=== PATIENT | female | born 1985 | race Caucasian/White ===

== ENCOUNTER → 2018-03-05 | Outpatient (CLI) | payer OTHER ==
[~2018-03-05] MED LIST: DOCU100C37 PO; IBUP-1780 PO; OXYC-465 PO; PREN-94 PO
== END ==
LOC: LABNPT 10:17
PROVIDERS: ATTEND Obstetrics & Gynecology
DX: O28.8 Other abnormal findings on antenatal screening of mother (principal)
CPT/HCPCS: 82570; 84156

== ENCOUNTER 2018-03-08 09:43 | Inpatient (IN) | payer OTHER ==
[2018-03-08] VITALS (9 sets, daily range): BP systolic 142–168; BP diastolic 74–87
[~2018-03-08] VITALS: Ht 165.1 cm; Wt 85.7 kg
[~2018-03-08 09:43] MED LIST changes: -Nifedipine PO; -OXYC1TAB12 PO
--- NOTE | 2018-03-08 12:05 | NUR ---
RACIEL NGUYEN presented to unit via AMBULATORY, accompanied by FAMILY, with c/o PREECLAMPSIA/ SENT FROM OFFICE FOR ADMISSION. RACIEL NGUYEN weighed, gowned, voided, and to bed. EFHM and TOCO applied, VS taken. RACIEL NGUYEN oriented to bed controls, call light, TV, heat, and A/C controls.
[2018-03-08] MEDS ORDERED: D5 LR IV SOLUTION 1,000 ML IV SCH (13:08)
--- NOTE | 2018-03-08 13:08 | History & Physical ---
History and Physical Date Seen by Provider: Mar 08, 2018 Time Seen by Provider: 13:03 This patient is a 32-year-old white female with an EDC of 2 2319 putting her at 36 and 57 weeks gestation. Her complicated by gestational diabetes type a 2 she has been on metformin with good blood sugar control. She also has pre-existing hypertension for which she has been on labetalol in spite of that her blood pressures have crept up and she was found today to have a urine protein creatinine ratio of 0.37. This was also complicated by polyhydramnios with an AIYANA of 272 noted on 2117. Patient is a high school history teacher physicians in [facility] and their plan for management which is ongoing now has been followed for this point She was admitted for management secondary to her preeclampsia. She denies rupture membranes or bleeding. Her GBS culture was done on this date in clinic. She has had 2 previous C-sections and plan is for repeat when delivery is warranted Allergies are to methyldopa which causes a rash Medications are labetalol 100 mg daily and vitamins and metformin 500 mg at bedtime 1 surgical histories are per the antepartum record HEENT exam is normal Neck is supple no lymphadenopathy no thyromegaly Abdomen is gravid soft nontender nondistended Extreme show no clubbing or cyanosis. There is no Homans sign. DTRs were 2+ to 3 over 4 globally Pelvic exam in my clinic on this date showed a cervix that is closed high and posterior Lab work is pending urine protein creatinine ratio obtained in my clinic was 0.37 today Assessment and plan 36-5/7 weeks' gestation in patient with gestational diabetes pre-existing hypertension with now superimposed preeclampsia and with 2 previous C-sections Plan at this point is for observation for continued blood pressure monitoring we will obtain baseline labs including a CBC CMP and an LDH. Patient will continue her diabetic diet and metformin as well as her blood pressures medication At this point patient appears to have mild preeclampsia. If that should progress to severe than we would effect delivery then otherwise delivery we'll be pursued at 37 weeks gestation which is 2 days hence Preeclampsia 36-5/7 weeks' gestation Allergies and Home Medications Allergies Coded Allergies: No Known Drug Allergies (Unverified , 06/24/15) Home Medications Docusate Sodium 100 Mg Capsule, 100 MG PO BID Prescribed by: EDINSON DO on 06/26/15 0740 Ibuprofen 800 Mg Tablet, 800 MG PO Q6H Prescribed by: EDINSON DO on 06/26/15 0740 Oxycodone HCl/Acetaminophen 1 Each Tablet, 1-2 TAB PO Q4H PRN for PAIN Prescribed by: EDINSON DO on 06/26/15 0740 Vits #90/Iron Fum/FA 1 Each Tablet, 1 EACH PO DAILY, (Reported) Patient Home Medication List Home Medication List Reviewed: Yes EDINSON VASQUEZ MD Mar 08, 2018 13:08
[2018-03-08] MEDS ORDERED: LABETALOL 200 MG (NORMODYNE) TAB PO NR (13:15)
[2018-03-08] MEDS ORDERED: LABETALOL 100 MG PO SCH (13:15)
[2018-03-08] MEDS ORDERED: PATIENT MAY USE OWN MEDS, ALL MC SCH (13:15)
[2018-03-08 14:31] LABS: HEMOGLOBIN 10.3 G/DL (11.5-16.0); MEAN PLATELET VOLUME 9.8 FL (7.4-10.4); RED CELL DISTRIBUTION WIDTH 17.3 % (10.0-14.5); WHITE BLOOD COUNT 5.6 10^3/uL (4.3-11.0)
[2018-03-08 14:39] LABS: ALANINE AMINOTRANSFERASE 12 U/L (0-55); ALBUMIN 3.4 GM/DL (3.2-4.5); ALKALINE PHOSPHATASE 105 U/L (40-136); BILIRUBIN,TOTAL 0.7 MG/DL (0.1-1.0); BUN/CREATININE RATIO 11; CARBON DIOXIDE 18 MMOL/L (21-32); CHLORIDE 106 MMOL/L (98-107); CREATININE SERUM 0.65 MG/DL (0.60-1.30); GFR ESTIMATED > 60; GLUCOSE 174 MG/DL (70-105); POTASSIUM 3.7 MMOL/L (3.6-5.0); SODIUM 134 MMOL/L (135-145); TOTAL PROTEIN 7.2 GM/DL (6.4-8.2)
--- OUTSIDE RECORDS SUMMARY | 2018-03-08 15:04 | XMS REPORT | Continuity of Care Document ---
Author Author [facility] Organization [facility] Address Unknown Phone Unavailable Allergies Active Description Code Type Severity Reaction Onset Reported/Identified Relationship to Patient Clinical Status Yes NKANo Known Allergies NKA Miscellaneous Allergy Unknown N/A 05/19/2006 Yes No Known Drug Allergies [id number] Drug Allergy Unknown N/A 06/24/2015 Medications There is no data. Problems Date Dx Coded Attending Type Code Diagnosis Diagnosed By 12/03/2014 DARION DAMON, BRANDO Glover Ot I10 01/05/2015 HERACLIO JAUREGUI MD Ot O16.9 01/05/2015 HERACLIO JAUREGUI MD Ot Z3A.00 04/08/2015 Ot 649.63 04/08/2015 BRANDO ORLANDO MD Ot I10 04/08/2015 Ot 646.83 04/08/2015 Ot V45.51 04/08/2015 HERACLIO JAUREGUI MD Ot O16.9 04/08/2015 HERACLIO JAUREGUI MD Ot Z3A.00 04/08/2015 Ot 649.63 04/08/2015 Ot 646.83 04/08/2015 Ot V45.51 04/08/2015 BRANDO ORLANDO MD Ot I10 04/08/2015 HERACLIO JAUREGUI MD Ot O16.9 04/08/2015 HERACLIO JAUREGUI MD Ot Z3A.00 06/02/2015 EDINSON VASQUEZ MD Ot O28.8 OTHER ABNORMAL FINDINGS ON SCR 06/17/2015 EDINSON VASQUEZ MD Ot O28.8 OTHER ABNORMAL FINDINGS ON SCR 06/17/2015 EDINSON VASQUEZ MD Ot Z3A.00 WEEKS OF GESTATION OF NOT SPEC 06/17/2015 EDINSON VASQUEZ MD Ot O28.8 OTHER ABNORMAL FINDINGS ON SCR 06/17/2015 EDINSON VASQUEZ MD Ot Z3A.00 WEEKS OF GESTATION OF NOT SPEC 06/23/2015 EDINSON VASQUEZ MD Ot O28.8 OTHER ABNORMAL FINDINGS ON SCR 06/24/2015 EDINSON VASQUEZ MD Ot O28.8 OTHER ABNORMAL FINDINGS ON SCR 06/25/2015 BRANDO ORLANDO MD Ot I10 ESSENTIAL (PRIMARY) HYPERTENSION 06/25/2015 HERACLIO JAUREGUI MD Ot O16.9 UNSPECIFIED MATERNAL HYPERTENSION, UNSPE 06/25/2015 HERACLIO JAUREGUI MD Ot Z3A.00 WEEKS OF GESTATION OF NOT SPEC 06/25/2015 EDINSON VASQUEZ MD Ot O28.8 OTHER ABNORMAL FINDINGS ON SCR 06/25/2015 EDINSON VASQUEZ MD Ot O28.8 OTHER ABNORMAL FINDINGS ON SCR 06/25/2015 EDINSON VASQUEZ MD Ot Z3A.00 WEEKS OF GESTATION OF NOT SPEC 06/25/2015 EDINSON VASQUEZ MD Ot O28.8 OTHER ABNORMAL FINDINGS ON SCR 06/25/2015 EDINSON VASQUEZ MD Ot O28.8 OTHER ABNORMAL FINDINGS ON SCR 06/25/2015 EDINSON VASQUEZ MD Ot O28.8 OTHER ABNORMAL FINDINGS ON SCR 06/25/2015 EDINSON VASQUEZ MD Ot O34.21 MATERNAL CARE FOR SCAR FROM PREVIOUS ELLIOTT 06/25/2015 EDINSON VASQUEZ MD Ot Z01.818 ENCOUNTER FOR OTHER PREPROCEDURAL EXAMIN 06/25/2015 Ot O28.8 OTHER ABNORMAL FINDINGS ON SCR 06/25/2015 BRANDO ORLANDO MD Ot I10 ESSENTIAL (PRIMARY) HYPERTENSION 06/25/2015 HERACLIO JAUREGUI MD Ot O16.9 UNSPECIFIED MATERNAL HYPERTENSION, UNSPE 06/25/2015 HERACLIO JAUREGUI MD Ot Z3A.00 WEEKS OF GESTATION OF NOT SPEC 06/25/2015 EDINSON VASQUEZ MD Ot O28.8 OTHER ABNORMAL FINDINGS ON SCR 06/25/2015 EDINSON VASQUEZ MD Ot O34.21 MATERNAL CARE FOR SCAR FROM PREVIOUS ELLIOTT 06/25/2015 EDINSON VASQUEZ MD Ot Z01.818 ENCOUNTER FOR OTHER PREPROCEDURAL EXAMIN 06/25/2015 EDINSON VASQUEZ MD, Ot O28.8 OTHER ABNORMAL FINDINGS ON SCR 06/25/2015 EDINSON VASQUEZ MD, Ot Z3A.00 WEEKS OF GESTATION OF NOT SPEC 06/25/2015 EDINSON VASQUEZ MD, Ot O28.8 OTHER ABNORMAL FINDINGS ON SCR 06/25/2015 EDINSON VASQUEZ MD Ot O28.8 OTHER ABNORMAL FINDINGS ON SCR 06/25/2015 EDINSON VASQUEZ MD Ot O28.8 OTHER ABNORMAL FINDINGS ON SCR 06/25/2015 Ot O28.8 OTHER ABNORMAL FINDINGS ON SCR 06/25/2015 Ot O28.8 OTHER ABNORMAL FINDINGS ON SCR 06/26/2015 BRANDO ORLANDO MD Ot I10 ESSENTIAL (PRIMARY) HYPERTENSION 06/26/2015 HERACLIO JAUREGUI MD Ot O16.9 UNSPECIFIED MATERNAL HYPERTENSION, UNSPE 06/26/2015 HERACLIO JAUREGUI MD Ot Z3A.00 WEEKS OF GESTATION OF NOT SPEC 06/26/2015 EDINSON VASQUEZ MD Ot O28.8 OTHER ABNORMAL FINDINGS ON SCR 06/26/2015 EDINSON VASQUEZ MD Ot O34.21 MATERNAL CARE FOR SCAR FROM PREVIOUS ELLIOTT 06/26/2015 EDINSON VASQUEZ MD Ot Z01.818 ENCOUNTER FOR OTHER PREPROCEDURAL EXAMIN 06/26/2015 EDINSON VASQUEZ MD, Ot O28.8 OTHER ABNORMAL FINDINGS ON SCR 06/26/2015 EDINSON VASQUEZ MD, Ot Z3A.00 WEEKS OF GESTATION OF NOT SPEC 06/26/2015 EDINSON VASQUEZ MD, Ot O28.8 OTHER ABNORMAL FINDINGS ON SCR 06/26/2015 EDINSON VASQUEZ MD Ot O28.8 OTHER ABNORMAL FINDINGS ON SCR 06/26/2015 EDINSON VASQUEZ MD, Ot O28.8 OTHER ABNORMAL FINDINGS ON SCR 06/26/2015 Ot O28.8 OTHER ABNORMAL FINDINGS ON SCR 06/27/2015 EDINSON VASQUEZ MD Ot O14.93 UNSPECIFIED PRE-ECLAMPSIA, THIRD TRIMEST 06/27/2015 CHRISTINA MD, EDINSON G Ot O34.21 MATERNAL CARE FOR SCAR FROM PREVIOUS ELLIOTT 06/27/2015 EDINSON VASQUEZ MD, Ot Z23 ENCOUNTER FOR IMMUNIZATION 06/27/2015 EDINSON VASQUEZ MD, Ot Z37.0 SINGLE LIVE 06/27/2015 EDINSON VASQUEZ MD, Ot Z3A.37 37 WEEKS GESTATION OF 07/02/2015 EDINSON VASQUEZ MD, Ot O28.8 OTHER ABNORMAL FINDINGS ON SCR 07/09/2015 EDINSON VASQUEZ MD, Ot O28.8 OTHER ABNORMAL FINDINGS ON SCR 07/09/2015 EDINSON VASQUEZ MD, Ot Z3A.00 WEEKS OF GESTATION OF NOT SPEC 07/30/2015 EDINSON VASQUEZ MD, Ot O28.8 OTHER ABNORMAL FINDINGS ON SCR 08/05/2015 EDINSON VASQUEZ MD, Ot O28.8 OTHER ABNORMAL FINDINGS ON SCR 08/05/2015 EDINSON VASQUEZ MD, Ot O28.8 OTHER ABNORMAL FINDINGS ON SCR 08/05/2015 Ot O28.8 OTHER ABNORMAL FINDINGS ON SCR 03/06/2018 EDINSON VASQUEZ MD, Ot O28.8 OTHER ABNORMAL FINDINGS ON SCR 03/08/2018 DARION DAMON, BRANDO Glover Ot I10 ESSENTIAL (PRIMARY) HYPERTENSION 03/08/2018 HERACLIO JAUREGUI MD Ot O16.9 UNSPECIFIED MATERNAL HYPERTENSION, UNSPE 03/08/2018 HERACLIO JAUREGUI MD Ot Z3A.00 WEEKS OF GESTATION OF NOT SPEC 03/08/2018 EDINSON VASQUEZ MD, Ot O28.8 OTHER ABNORMAL FINDINGS ON SCR 03/08/2018 EDINSON VASQUEZ MD, Ot O34.21 MATERNAL CARE FOR SCAR FROM PREVIOUS ELLIOTT 03/08/2018 EDINSON VASQUEZ MD, Ot Z01.818 ENCOUNTER FOR OTHER PREPROCEDURAL EXAMIN 03/08/2018 EDINSON VASQUEZ MD, Ot O28.8 OTHER ABNORMAL FINDINGS ON SCR 03/08/2018 EDINSON VASQUEZ MD, Ot Z3A.00 WEEKS OF GESTATION OF NOT SPEC 03/08/2018 EDINSON VASQUEZ MD, Ot O28.8 OTHER ABNORMAL FINDINGS ON SCR 03/08/2018 EDINSON VASQUEZ MD Ot O28.8 OTHER ABNORMAL FINDINGS ON SCR 03/08/2018 EDINSON VASQUEZ MD Ot O28.8 OTHER ABNORMAL FINDINGS ON SCR 03/08/2018 Ot O28.8 OTHER ABNORMAL FINDINGS ON SCR 03/08/2018 EDINSON VASQUEZ MD Ot O28.8 OTHER ABNORMAL FINDINGS ON SCR Procedures Code Description Performed By Performed On [id number] EXTRACTION OF POC, LOW CERVICAL, OPEN AP 06/25/2015 Results Test Result Range Urine protein/creatinine mass ratio - 03/05/18 09:50 Urine protein measurement (mass/volume) 35 mg/dL 6-12 Urine creatinine measurement (mass/volume) 129 mg/dL 30- 125 Urine protein/creatinine mass ratio 0.27 NRG Urine protein/creatinine mass ratio - 03/08/18 09:44 Urine protein measurement (mass/volume) 38 mg/dL 6-12 Urine creatinine measurement (mass/volume) 103 mg/dL 30- 125 Urine protein/creatinine mass ratio 0.37 NRG Encounters ACCT No. Visit Date/Time Discharge Status Pt. Type Provider Facility Loc./Unit Complaint [id number] 03/05/2018 10:17:00 03/05/2018 23:59:59 CLS Outpatient EDINSON VASQUEZ MD [facility] LABT [id number] 06/25/2015 09:32:00 06/27/2015 14:24:00 DIS Inpatient EDINSON VASQUEZ MD [facility] LDRP PREVIOUS SECTION [id number] 06/24/2015 11:21:00 06/24/2015 23:59:59 CLS Outpatient EDINSON VASQUEZ MD [facility] PREOP C SECTION [id number] 06/23/2015 10:48:00 06/23/2015 23:59:59 CLS Outpatient EDINSON VASQUEZ MD [facility] OTHER ABNORMAL FINDING ON SCREENING [id number] 06/22/2015 14:32:00 06/22/2015 23:59:59 CLS Outpatient EDINSON VASQUEZ MD [facility] LABT OTHER ABNORMAL FINDING ON SCREENING [id number] 06/19/2015 10:01:00 06/19/2015 23:59:59 CLS Outpatient EDINSON VASQUEZ MD [facility] LABT OTHER ABNORMAL FINDING ON SCREENING [id number] 06/16/2015 14:09:00 06/16/2015 23:59:59 CLS Outpatient EDINSON VASQUEZ MD [facility] LABT OTHER ABNORMAL FINDING ON SCREENING [id number] 06/01/2015 14:33:00 06/01/2015 23:59:59 CLS Outpatient EDINSON VASQUEZ MD [facility] LAB OTHER ABNORMAL FINDINGS ON SCREEN [id number] 12/12/2014 07:25:00 12/12/2014 23:59:59 CLS Outpatient HERACLIO JAUREGUI MD [facility] CARD HTN, [id number] 11/13/2014 11:42:00 11/13/2014 23:59:59 CLS Outpatient BRANDO ORLANDO MD [facility] RAD ,HYPERTENSION [id number] 03/19/2018 12:00:00 PEN Preadmit EDINSON VASQUEZ MD PREVIOUS C/S AND GESTATIONAL DIABETES [id number] 03/08/2018 12:25:00 ACT Inpatient EDINSON VASQUEZ MD [facility] LDRP PREECLAMPSIA [id number] 06/24/2015 15:08:00 Document Registration [id number] 04/08/2015 13:34:00 Document Registration [id number] 04/08/2015 13:34:00 Document Registration [id number] 04/04/2008 10:46:00 Document Registration [id number] 02/09/2006 13:11:00 Document Registration
--- NOTE | 2018-03-08 15:59 | NUR ---
DR VASQUEZ CALLED WITH LAB RESULTS AND LATEST BP. ORDERS FOR DIET TOLERATED, TKO IV RATE.
--- NOTE | 2018-03-08 17:30 | NUR ---
this rn called dr martínez with updated pt report. reports recent BPs. pt denies other s/s of pre-e. orders to recheck BP in [address] martínez will be up on LD for evaluation
--- NOTE | 2018-03-08 18:00 | NUR ---
dr martínez on LD at this time. updated on recent BP. Dr Martínez called for CS at this time. dr in pt room to discuss plan fo pt care. Anesthesia, Business Information Analyst, OR crew notified. TEREZA Pizarro to prep pt for CS while this RN & Dr Martínez go into another delivery.
[2018-03-08] MEDS ORDERED: CITRIC ACID/SOB CIT (BICITRA) 30 ML UDC ONE (18:14)
[2018-03-08] MEDS ORDERED: FAMOTIDINE 20MG/2ML IV (PEPCID) ONE (18:14)
[2018-03-08] MEDS ORDERED: METOCLOPRAMIDE INJ 10 MG/2 ML (REGLAN) ONE (18:14)
[2018-03-08] MEDS ORDERED: LACTATED RINGERS 1,000 ML IV ONE ×2 (18:14→18:46)
--- NOTE | 2018-03-08 18:16 | NUR ---
Rosenda, ERIC here.
--- NOTE | 2018-03-08 18:21 | NUR ---
consent signed for repeat c/s and placed on chart.
--- NOTE | 2018-03-08 18:23 | NUR ---
per-op medications given, see eMar for further.
[2018-03-08] MEDS ORDERED: fentaNYL INJECTION 100 MCG/2 ML AMP ONE (18:26)
[2018-03-08] MEDS ORDERED: LIDOCAINE PF 2% 5 ML (XYLOCAINE) VIAL ONE (18:26)
[2018-03-08] MEDS ORDERED: metroNIDAZOLE 500MG/100ML IVPB 100 ML ONE (18:42)
[2018-03-08] MEDS ORDERED: ceFAZolin 2 GM IV Premixed 50 ML ONE (18:42)
[2018-03-08] MEDS ORDERED: BUPIVACAINE 0.5% 30 ML (SENSORCAINE) VIAL ONE (19:36)
[2018-03-08] MEDS ORDERED: OXYTOCIN/NORMAL SALINE 1,000 ML IV ONE (19:37)
[2018-03-08] MEDS ORDERED: OXYTOCIN/NORMAL SALINE 500 ML IV SCH (20:06)
[2018-03-08] MEDS ORDERED: D5 LR IV SOLUTION 1,000 ML IV ONE (20:14)
[2018-03-08] MEDS ORDERED: TETANUS,DIPTH,PERTUSS P/F (BOOSTRIX) 0.5 ML VIAL IM ONE (20:15)
[2018-03-08] MEDS ORDERED: ceFAZolin INJECTION 2,000 MG in NS (IVPB) 50 ML IV ONE (20:15)
[2018-03-08] MEDS ORDERED: PROMETHAZINE INJ 25 MG/ML (PHENERGAN) AMP IM PRN (20:15)
[2018-03-08] MEDS ORDERED: ONDANSETRON 4 MG/2 ML (SDV) Z0FRAN IVP PRN ×2 (20:15→21:00)
[2018-03-08] MEDS ORDERED: MEASLES,MUMPS,RUBELLA 1 EA INJ SC ONE (20:15)
[2018-03-08] MEDS ORDERED: metroNIDAZOLE 500MG/100ML IVPB 100 ML IV ONE (20:15)
[2018-03-08] MEDS ORDERED: MEPERIDINE (DEMEROL) INJ 100 MG/ML IM PRN (20:15)
[2018-03-08] MEDS ORDERED: LACTATED RINGERS 1,000 ML IV PRN (20:23)
[2018-03-08] MEDS ORDERED: METOCLOPRAMIDE INJ 10 MG/2 ML (REGLAN) IV ONE (20:30)
[2018-03-08] MEDS ORDERED: FAMOTIDINE 20MG/2ML IV (PEPCID) IV ONE (20:30)
[2018-03-08] MEDS ORDERED: CITRIC ACID/SOB CIT (BICITRA) 30 ML UDC PO ONE (20:30)
[2018-03-08] MEDS ORDERED: metFORMIN 500 MG (GLUCOPHAGE) TAB PO SCH (21:00)
--- NOTE | 2018-03-08 21:15 | NUR ---
REPORT FROM LILA LAN RN .
--- NOTE | 2018-03-08 22:05 | NUR ---
REPORTS ITCHING. REQUEST MEDICATION FOR RELIEF.
[2018-03-08] MEDS ORDERED: diphenhydrAMINE 50 MG/ML INJ (BENADRYL) IM PRN (22:30)
[2018-03-08] MEDS: DOCUSATE SODIUM 100 MG (COLACE) CAP PO SCH (23:15)
[2018-03-08] MEDS: KETOROLAC 30 MG/ML VIAL IVP SCH (23:15)
[2018-03-09] MEDS: oxyCODONE/APAP 10/325MG (PERCOCET 10) TABLET PO PRN ×3 (02:05→23:24)
--- NOTE | 2018-03-09 03:34 | OPERATIVE REPORT ---
DATE OF SERVICE: 03/08/2018 PREOPERATIVE DIAGNOSES: A 36 and 5/7 weeks' gestation with 2 previous sections and severe preeclampsia as well as gestational diabetes. POSTOPERATIVE DIAGNOSES: A 36 and 5/7 weeks' gestation with 2 previous sections and severe preeclampsia as well as gestational diabetes. OPERATIVE PROCEDURE: Repeat low transverse delivery of a viable male with Apgars of 8 and 9 at 1 and 5 minutes respectively, weight of 6 pounds 2 ounces. Cord blood pH of 7.31 and a time of 1933. OPERATIVE DESCRIPTION: With the patient in the supine position under satisfactory spinal analgesia, she was prepped and draped in usual fashion for abdominal surgery. Ramirez catheter was placed in the urinary bladder and left to dependent drainage. A repeat Pfannenstiel incision was made through the skin with a scalpel by removing the patient's previous Pfannenstiel incisional scar. The abdomen was entered in the usual manner. Bladder retractor was placed into position and clean scalpel was used to make a 4 cm hysterotomy incision transversely across the lower uterine segment that was extended by blunt dissection as well. Copious clear fluid was released on hysterotomy. The presenting part was vertex, but it was still quite high in the uterus and did not respond to fundal pressure to bring it down. Patel forceps were then applied to facilitate delivery of the vigorous viable male infant with the stats as noted above. The was bulb suctioned on delivery of the head and again on completion of delivery. Umbilical cord was doubly clamped and cut and then the infant was passed to Dr. Stephenson, the ethnoarchaeologist in attendance for delivery. Cord bloods were obtained. The placenta delivered spontaneously Gotti and it was normal with a 3-vessel cord. The uterus was exteriorized and interior was wiped clean with a wet laparotomy sponge. Uterine incision was closed with a running locked suture of 2-0 Vicryl. Hemostasis was complete. The uterus was returned to abdominal cavity. All blood clot and debris removed from the abdominal cavity. Sponge and needle counts were correct. Hemostasis assured. The anterior parietal peritoneum was closed with running suture of 2-0 Vicryl. The rectus muscles were closed with that suture as well. The rectus fascia was closed with 2-0 Vicryl, subcutaneous tissue was closed with 2-0 Vicryl and the skin was stapled. Sponge and needle counts were correct on completion of the procedure. Estimated blood loss was 350 mL. The patient tolerated the procedure well and was transferred to the recovery room in stable condition. The infant had been taken stable to the full term nursery under the care of Dr. Stephenson. Job ID: [id number] DocumentID: [id number] Dictated Date: 03/08/2018 19:59:16 Fur Buyer Date: 03/09/2018 03:33:51 Dictated By: EDINSON VASQUEZ MD
[2018-03-09 03:56] VITALS: BP 144/80
[2018-03-09] MEDS: KETOROLAC 30 MG/ML VIAL IVP SCH (05:19)
--- NOTE | 2018-03-09 07:00 | NUR ---
REPORT FROM KELLI STARKS.
--- NOTE | 2018-03-09 07:14 | Anesthesia-Regional Post-Op ---
Regional Patient Condition Mental Status: Alert, Oriented x3 Circulation: Same as Pre-Op Headache: Absent Sensation: Full Recovery Motor Block: Absent Post Op Complications Complications None Follow Up Care/Instructions Patient Instructions None needed. Anesthesia/Patient Condition Patient is doing well, no complaints, stable vital signs, no apparent adverse anesthesia problems. No complications reported per nursing. KRIS TAYLOR CRNA Mar 09, 2018 07:14
--- NOTE | 2018-03-09 07:35 | NUR ---
DR VASQUEZ HERE NEW ORDERS RECEIVED,
--- NOTE | 2018-03-09 07:39 | Progress Note-Standard ---
Standard Progress Note Progress Notes/Assess & Plan Date Seen by a Provider: Mar 09, 2018 Time Seen by a Provider: 07:38 Progress/Assessment & Plan This patient is without complaint. She is ambulating, voiding, tolerating oral intake well has good pain control. She denies chest pain, denies shortness breath, denies headache, denies nausea vomiting. Vital Signs Date Time Temp Pulse Resp B/P (MAP) Pulse Ox O2 Delivery O2 Flow Rate FiO2 03/09/18 03:56 98.4 75 18 144/80 (101) 97 Room Air 03/09/18 00:33 Room Air 03/08/18 23:10 97.7 84 164/79 (107) Room Air 03/08/18 17:51 82 162/78 (106) Room Air 03/08/18 17:31 78 165/86 (112) Room Air 03/08/18 17:19 78 160/80 (106) Room Air 03/08/18 17:12 98.1 82 168/83 (111) Room Air 03/08/18 16:48 80 161/78 (105) Room Air 03/08/18 14:16 95 142/74 (96) Room Air 03/08/18 13:40 87 159/77 (104) Room Air 03/08/18 12:30 97.4 86 18 163/87 (112) 98 Room Air I & O 03/09/18 07:00 Intake Total 1450 ml Output Total 600 ml Balance 850 ml Vital signs are stable. Blood pressures are stable but somewhat elevated she does continue on her labetalol The abdomen is benign. The surgical incision is clean dry and intact. The fundus is firm below the umbilicus nontender. Extremities show clubbing cyanosis. There is no Homans sign. Assessment and Plan postoperative day number 1 status post repeat delivery doing well. Plan is for routine convalescence care with close attention to blood pressures. EDINSON VASQUEZ MD Mar 09, 2018 07:39
[2018-03-09 08:43] VITALS: BP 158/75
--- NOTE | 2018-03-09 08:50 | NUR ---
IV REMOVED, PT UP TO SHOWER.
[2018-03-09] MEDS: DOCUSATE SODIUM 100 MG (COLACE) CAP PO SCH ×2 (09:30→20:14)
[2018-03-09] MEDS ORDERED: IBUPROFEN 800 MG (MOTRIN) TAB PO ONE (11:01)
[2018-03-09] MEDS: IBUPROFEN 800 MG (MOTRIN) TAB PO SCH ×3 (11:06→22:26)
--- NOTE | 2018-03-09 11:10 | NUR ---
INITIAL ASSESSMENT COMPLETED SEE INTERVENTIONS FOR DETAILED ASSESSMENTS.
--- NOTE | 2018-03-09 11:37 | NUR ---
PT C/O PAIN PERCOCET GIVEN PO.
--- NOTE | 2018-03-09 11:45 | NUR ---
INFO PAPERS GIVEN AND EXPLAINED.
[2018-03-09 12:00] VITALS: BP 152/86
--- NOTE | 2018-03-09 13:15 | NUR ---
LINENS CHANGED, PT IN NSY WITH .
[2018-03-09] MEDS: LABETALOL 100 MG TABLET PO SCH ×2 (14:30→22:25)
--- NOTE | 2018-03-09 15:49 | NUR ---
DR VASQUEZ HERE NO NEW ORDERS.
--- NOTE | 2018-03-09 16:35 | NUR ---
SCHEDULED MOTRIN GIVEN, PT AT SIDE IN NSY.
[2018-03-09 19:12] VITALS: BP 162/84
--- NOTE | 2018-03-09 20:15 | NUR ---
Pt resting in bed. just finished pumping. minor child at bedside. assessment completed. pt denies any concerns at this time. will continue to monitor.
[2018-03-09 22:00] VITALS: BP 149/82
[2018-03-10 03:59] VITALS: BP 138/83
[2018-03-10] MEDS: IBUPROFEN 800 MG (MOTRIN) TAB PO SCH ×4 (05:02→23:56)
[2018-03-10 08:15] VITALS: BP 143/86
[2018-03-10] MEDS: LABETALOL 100 MG TABLET PO SCH ×3 (08:15→21:42)
--- NOTE | 2018-03-10 10:16 | Progress Note-Standard ---
Standard Progress Note Progress Notes/Assess & Plan Date Seen by a Provider: Mar 10, 2018 Time Seen by a Provider: 10:15 Progress/Assessment & Plan This patient is without complaint. She is ambulating, voiding, tolerating oral intake well has good pain control. She denies chest pain, denies shortness breath, denies headache, denies nausea vomiting. Vital Signs Date Time Temp Pulse Resp B/P (MAP) Pulse Ox O2 Delivery O2 Flow Rate FiO2 03/09/18 03:56 98.4 75 18 144/80 (101) 97 Room Air 03/09/18 00:33 Room Air 03/08/18 23:10 97.7 84 164/79 (107) Room Air 03/08/18 17:51 82 162/78 (106) Room Air 03/08/18 17:31 78 165/86 (112) Room Air 03/08/18 17:19 78 160/80 (106) Room Air 03/08/18 17:12 98.1 82 168/83 (111) Room Air 03/08/18 16:48 80 161/78 (105) Room Air 03/08/18 14:16 95 142/74 (96) Room Air 03/08/18 13:40 87 159/77 (104) Room Air 03/08/18 12:30 97.4 86 18 163/87 (112) 98 Room Air I & O 03/09/18 07:00 Intake Total 1450 ml Output Total 600 ml Balance 850 ml Vital signs are stable. Blood pressures are stable but somewhat elevated she does continue on her labetalol The abdomen is benign. The surgical incision is clean dry and intact. The fundus is firm below the umbilicus nontender. Extremities show clubbing cyanosis. There is no Homans sign. Assessment and Plan postoperative day number 1 status post repeat delivery doing well. Plan is for routine convalescence care with close attention to blood pressures. March 10, 2018 Patient without complaint. She is ambulating, voiding, tolerating oral intake well has good pain control. Patient denies chest pain, denies shortness of breath, denies nausea vomiting, and denies headache. Vital Signs 03/09/18 03/10/18 08:43 03:59 Temp 97.0 Pulse 75 Resp 20 B/P (MAP) 138/83 (101) Pulse Ox 98 O2 Delivery Room Air Vital signs are stable. Patient's blood pressure is normalizing while continuing on her labetalol The abdomen is benign. The surgical incision is clean dry and intact. Fundus is firm below the umbilicus. Extremities show no clubbing or cyanosis. There is no Homans sign. There is some pretibial pitting edema that is normal. Assessment and plan /postoperative day number 2 status post repeat delivery at 36-5/7 weeks gestation. Patient is doing well and we will continue inpatient management and consider discharge tomorrow EDINSON VASQUEZ MD Mar 10, 2018 10:16
[2018-03-10] MEDS ORDERED: IBUP-1780 PO (10:18)
[2018-03-10] MEDS ORDERED: DOCU100C37 PO (10:18)
[2018-03-10] MEDS ORDERED: OXYC1TAB12 PO (10:18)
--- NOTE | 2018-03-10 10:20 | Discharge Instructions ---
Discharge Instructions Discharge Medications New, Converted or Re-Newed RX: RX on Chart Patient Instructions Patient Instructions: As directed Return to The Hospital For: As directed Activity & Diet Discharge Diet: No Restrictions Activity as Tolerated: No Orders-Post D/C & Referrals Follow Up Appt: RTC on Monday, March 16, 2018 at 930 a.m. for incision check. Call to make follow up appt. for patient in 4 weeks. Wound Care: Remove brina, apply benzoin and steri strips. Activity Per routine post instructions. Please call in RX to patient pharmacy. Diet as tolerated Patient may shower or tub bathe as desired. Continue home meds EDINSON VASQUEZ MD Mar 10, 2018 10:20
[2018-03-10 11:45] VITALS: BP 149/83
[2018-03-10] MEDS: DOCUSATE SODIUM 100 MG (COLACE) CAP PO SCH ×2 (11:46→19:21)
[2018-03-10] MEDS: oxyCODONE/APAP 10/325MG (PERCOCET 10) TABLET PO PRN (16:38)
--- NOTE | 2018-03-10 16:38 | NUR ---
PT IN BED, WATCHING TV. REQUESTING A PAIN PILL, MED GIVEN PO; SEE EMAR FOR FURTHER. NO FURTHER NEEDS VOICED. PT INFORMED THAT VS AND MOTRIN WILL BE DUE AROUND 1800. S/O AT THE BEDSIDE.
[2018-03-10 18:34] VITALS: BP 170/92
--- NOTE | 2018-03-10 18:35 | NUR ---
PT UP IN ROOM. ROUTINE MOTRIN GIVEN PO; SEE EMAR FOR FURTHER. VS OBTAINED. DR. VASQUEZ IS ON THE UNIT, NOTIFIED OF RECENT B/P.
--- NOTE | 2018-03-10 19:45 | NUR ---
pt resting in bed. assessment completed. pt denies any needs at this time. will continue to monitor.
[2018-03-10 21:30] VITALS: BP 162/86
--- NOTE | 2018-03-10 21:30 | NUR ---
notified of b/p order to repeat dose of labetalol x1 received.
[2018-03-10 23:56] VITALS: BP 151/90
[2018-03-11] VITALS (7 sets, daily range): BP systolic 147–183; BP diastolic 72–96
[2018-03-11] MEDS: IBUPROFEN 800 MG (MOTRIN) TAB PO SCH ×4 (05:36→23:52)
[2018-03-11] MEDS: LABETALOL 100 MG TABLET PO SCH ×4 (07:02→20:33)
--- NOTE | 2018-03-11 07:05 | Progress Note-Standard ---
Standard Progress Note Progress Notes/Assess & Plan Date Seen by a Provider: Mar 11, 2018 Time Seen by a Provider: 07:03 Progress/Assessment & Plan This patient is without complaint. She is ambulating, voiding, tolerating oral intake well has good pain control. She denies chest pain, denies shortness breath, denies headache, denies nausea vomiting. Vital Signs Date Time Temp Pulse Resp B/P (MAP) Pulse Ox O2 Delivery O2 Flow Rate FiO2 03/09/18 03:56 98.4 75 18 144/80 (101) 97 Room Air 03/09/18 00:33 Room Air 03/08/18 23:10 97.7 84 164/79 (107) Room Air 03/08/18 17:51 82 162/78 (106) Room Air 03/08/18 17:31 78 165/86 (112) Room Air 03/08/18 17:19 78 160/80 (106) Room Air 03/08/18 17:12 98.1 82 168/83 (111) Room Air 03/08/18 16:48 80 161/78 (105) Room Air 03/08/18 14:16 95 142/74 (96) Room Air 03/08/18 13:40 87 159/77 (104) Room Air 03/08/18 12:30 97.4 86 18 163/87 (112) 98 Room Air I & O 03/09/18 07:00 Intake Total 1450 ml Output Total 600 ml Balance 850 ml Vital signs are stable. Blood pressures are stable but somewhat elevated she does continue on her labetalol The abdomen is benign. The surgical incision is clean dry and intact. The fundus is firm below the umbilicus nontender. Extremities show clubbing cyanosis. There is no Homans sign. Assessment and Plan postoperative day number 1 status post repeat delivery doing well. Plan is for routine convalescence care with close attention to blood pressures. March 10, 2018 Patient without complaint. She is ambulating, voiding, tolerating oral intake well has good pain control. Patient denies chest pain, denies shortness of breath, denies nausea vomiting, and denies headache. Vital Signs 03/09/18 03/10/18 08:43 03:59 Temp 97.0 Pulse 75 Resp 20 B/P (MAP) 138/83 (101) Pulse Ox 98 O2 Delivery Room Air Vital signs are stable. Patient's blood pressure is normalizing while continuing on her labetalol The abdomen is benign. The surgical incision is clean dry and intact. Fundus is firm below the umbilicus. Extremities show no clubbing or cyanosis. There is no Homans sign. There is some pretibial pitting edema that is normal. Assessment and plan /postoperative day number 2 status post repeat delivery at 36-5/7 weeks gestation. Patient is doing well and we will continue inpatient management and consider discharge tomorrow March 11, 2018 Patient is without complaint. Vital Signs Date Time Temp Pulse Resp B/P (MAP) Pulse Ox O2 Delivery O2 Flow Rate FiO2 03/11/18 05:49 97.2 70 18 161/94 (116) Room Air 03/10/18 23:56 96.8 87 18 151/90 (110) 98 Room Air 03/10/18 21:30 98.3 88 18 162/86 (111) 98 Room Air 03/10/18 18:34 97.9 83 18 170/92 (118) 98 Room Air 03/10/18 11:45 97.9 83 18 149/83 (105) Room Air 03/10/18 08:15 97.9 86 20 143/86 (105) Room Air Vital signs are stable. Patient afebrile. Her pressures remain elevated. Physical exam is unchanged Assessment and plan postoperative day number 3 status post repeat delivery at 36-5/7 weeks' gestation due to preeclampsia. Blood pressures remain elevated and patient continued on labetalol. The dose of labetalol has been increased and we will continue inpatient management and blood pressure monitoring EDINSON VASQUEZ MD Mar 11, 2018 07:05
--- NOTE | 2018-03-11 07:18 | NUR ---
DR. VASQUEZ TO PT'S BEDSIDE FOR ROUNDING. NEW ORDERS RECEIVED.
--- NOTE | 2018-03-11 07:58 | NUR ---
CLARIFICATION ON LABETALOL PER AMANDA, PHARMACIST. DR. VASQUEZ HAS INCREASED LABETALOL TO 200 MG BID.
[2018-03-11] MEDS: DOCUSATE SODIUM 100 MG (COLACE) CAP PO SCH ×2 (09:46→20:33)
[2018-03-11] MEDS: oxyCODONE/APAP 10/325MG (PERCOCET 10) TABLET PO PRN (10:10)
--- NOTE | 2018-03-11 10:10 | NUR ---
ROSSY REMOVED. BENZOIN SPRAYED AND THEN STERI STRIPS APPLIED. PT GETS UP IN ROOM. LINENS AND PAIN MEDICATION PROVIDED PER REQUEST; SEE EMAR FOR FURTHER.
--- NOTE | 2018-03-11 12:27 | NUR ---
RX FOR MOTRIN AND COLACE CALLED INTO [facility].
--- NOTE | 2018-03-11 13:04 | NUR ---
PT IN BED, PUMPING. ROUTINE MOTRIN GIVEN PO; SEE EMAR FOR FURTHER. VS OBTAINED. PT DENIES ANY NEEDS AT THIS TIME. FOOD TRAY REMOVED FROM ROOM.
--- NOTE | 2018-03-11 14:55 | NUR ---
PT CHECKED ON BY OB STAFF. PT UP IN THE ROOM, VISITOR PRESENT, NO NEEDS VOICED.
--- NOTE | 2018-03-11 16:12 | NUR ---
PT PUMPING. VS OBTAINED. LINENS AND FRESH ICE WATER PROVIDED.
--- NOTE | 2018-03-11 16:18 | NUR ---
DR. VASQUEZ NOTIFIED OF LAST 2 B/P'S. NEW ORDERS RECEIVED.
[2018-03-11] MEDS ORDERED: ACETAMINOPHEN 500 MG TAB (TYLENOL) PO PRN (16:30)
--- NOTE | 2018-03-11 20:30 | NUR ---
pt resting in bed. assessment completed. bed linens changed. pt denies any further needs at this time. will continue to monitor.
[2018-03-11] MEDS ORDERED: LABETALOL 200 MG (NORMODYNE) TAB PO SCH (21:00)
[2018-03-11] MEDS ORDERED: NIFEdipine 10 MG CAPS (WOMEN'S SERVICES ONLY!!!) PO ONE ×2 (23:40→23:45)
--- NOTE | 2018-03-11 23:45 | NUR ---
vs taken, bp elevated. pt c/o headache. pt denies any need for pain relief at this time. notified of elevated bp. new orders received. plan of care discussed with pt. pt denies any further needs at this time.
--- NOTE | 2018-03-12 | NUR ---
lab notified of stat orders. Crow stated traffic investigator was busy. Labs drawn per this rn.
[2018-03-12 00:14] LABS: BASOPHILS % (AUTO) 1 % (0-10); EOSINOPHILS # (AUTO) 0.1 10^3/uL (0.0-0.3); EOSINOPHILS % (AUTO) 2 % (0-10); HEMATOCRIT 32 % (35-52); HEMOGLOBIN 9.8 G/DL (11.5-16.0); LYMPHOCYTES # (AUTO) 2.8 X 10^3 (1.0-4.0); LYMPHOCYTES % (AUTO) 42 % (12-44); MEAN CORPUSCULAR HEMOGLOBIN 25 PG (25-34); MEAN CORPUSCULAR HGB CONC 31 G/DL (32-36); MEAN CORPUSCULAR VOLUME 82 FL (80-99); MEAN PLATELET VOLUME 9.1 FL (7.4-10.4); MONOCYTES # (AUTO) 0.5 X 10^3 (0.0-1.0); MONOCYTES % (AUTO) 7 % (0-12); NEUTROPHILS # (AUTO) 3.3 X 10^3 (1.8-7.8); NEUTROPHILS % (AUTO) 49 % (42-75); PLATELET COUNT 304 10^3/uL (130-400); RED CELL DISTRIBUTION WIDTH 16.8 % (10.0-14.5); WHITE BLOOD COUNT 6.7 10^3/uL (4.3-11.0)
[2018-03-12 00:29] LABS: ALANINE AMINOTRANSFERASE 13 U/L (0-55); ALBUMIN 3.4 GM/DL (3.2-4.5); ALKALINE PHOSPHATASE 83 U/L (40-136); BILIRUBIN,TOTAL 0.6 MG/DL (0.1-1.0); BUN/CREATININE RATIO 25; CARBON DIOXIDE 21 MMOL/L (21-32); CHLORIDE 106 MMOL/L (98-107); CREATININE SERUM 0.57 MG/DL (0.60-1.30); GFR ESTIMATED > 60; GLUCOSE 84 MG/DL (70-105); SODIUM 138 MMOL/L (135-145); TOTAL PROTEIN 6.8 GM/DL (6.4-8.2)
[2018-03-12 00:45] VITALS: BP 136/72
--- NOTE | 2018-03-12 01:00 | NUR ---
labs called to . New orders received.
[2018-03-12 03:59] VITALS: BP 130/81
[2018-03-12] MEDS: IBUPROFEN 800 MG (MOTRIN) TAB PO SCH ×2 (05:57→13:16)
[2018-03-12] MEDS ORDERED: NIFEdipine ER 30 MG (PROCARDIA XL) TAB PO NR (07:30)
--- NOTE | 2018-03-12 07:34 | Progress Note-Standard ---
Standard Progress Note Progress Notes/Assess & Plan Date Seen by a Provider: Mar 12, 2018 Time Seen by a Provider: 07:32 Progress/Assessment & Plan This patient is without complaint. She is ambulating, voiding, tolerating oral intake well has good pain control. She denies chest pain, denies shortness breath, denies headache, denies nausea vomiting. Vital Signs Date Time Temp Pulse Resp B/P (MAP) Pulse Ox O2 Delivery O2 Flow Rate FiO2 03/09/18 03:56 98.4 75 18 144/80 (101) 97 Room Air 03/09/18 00:33 Room Air 03/08/18 23:10 97.7 84 164/79 (107) Room Air 03/08/18 17:51 82 162/78 (106) Room Air 03/08/18 17:31 78 165/86 (112) Room Air 03/08/18 17:19 78 160/80 (106) Room Air 03/08/18 17:12 98.1 82 168/83 (111) Room Air 03/08/18 16:48 80 161/78 (105) Room Air 03/08/18 14:16 95 142/74 (96) Room Air 03/08/18 13:40 87 159/77 (104) Room Air 03/08/18 12:30 97.4 86 18 163/87 (112) 98 Room Air I & O 03/09/18 07:00 Intake Total 1450 ml Output Total 600 ml Balance 850 ml Vital signs are stable. Blood pressures are stable but somewhat elevated she does continue on her labetalol The abdomen is benign. The surgical incision is clean dry and intact. The fundus is firm below the umbilicus nontender. Extremities show clubbing cyanosis. There is no Homans sign. Assessment and Plan postoperative day number 1 status post repeat delivery doing well. Plan is for routine convalescence care with close attention to blood pressures. March 10, 2018 Patient without complaint. She is ambulating, voiding, tolerating oral intake well has good pain control. Patient denies chest pain, denies shortness of breath, denies nausea vomiting, and denies headache. Vital Signs 03/09/18 03/10/18 08:43 03:59 Temp 97.0 Pulse 75 Resp 20 B/P (MAP) 138/83 (101) Pulse Ox 98 O2 Delivery Room Air Vital signs are stable. Patient's blood pressure is normalizing while continuing on her labetalol The abdomen is benign. The surgical incision is clean dry and intact. Fundus is firm below the umbilicus. Extremities show no clubbing or cyanosis. There is no Homans sign. There is some pretibial pitting edema that is normal. Assessment and plan /postoperative day number 2 status post repeat delivery at 36-5/7 weeks gestation. Patient is doing well and we will continue inpatient management and consider discharge tomorrow March 11, 2018 Patient is without complaint. Vital Signs Date Time Temp Pulse Resp B/P (MAP) Pulse Ox O2 Delivery O2 Flow Rate FiO2 03/11/18 05:49 97.2 70 18 161/94 (116) Room Air 03/10/18 23:56 96.8 87 18 151/90 (110) 98 Room Air 03/10/18 21:30 98.3 88 18 162/86 (111) 98 Room Air 03/10/18 18:34 97.9 83 18 170/92 (118) 98 Room Air 03/10/18 11:45 97.9 83 18 149/83 (105) Room Air 03/10/18 08:15 97.9 86 20 143/86 (105) Room Air Vital signs are stable. Patient afebrile. Her pressures remain elevated. Physical exam is unchanged Assessment and plan postoperative day number 3 status post repeat delivery at 36-5/7 weeks' gestation due to preeclampsia. Blood pressures remain elevated and patient continued on labetalol. The dose of labetalol has been increased and we will continue inpatient management and blood pressure monitoring March 12, 2018 Patient is without complaint. She is ambulating, voiding, tolerating oral intake well has good pain control. She denies headache, denies shortness of breath, denies nausea vomiting, and denies chest pain. Patient feels ready for discharge home. Vital Signs Date Time Temp Pulse Resp B/P (MAP) Pulse Ox O2 Delivery O2 Flow Rate FiO2 03/12/18 03:59 97.1 82 18 130/81 (97) 97 Room Air 03/12/18 00:45 80 18 136/72 (93) 97 Room Air 03/11/18 23:45 96.9 82 18 183/96 (125) 97 Room Air 03/11/18 21:15 97.3 83 18 161/78 (105) 97 Room Air 03/11/18 17:15 170/86 (114) 03/11/18 16:12 97.9 79 18 168/85 (112) 97 Room Air 03/11/18 13:04 98.2 84 18 157/74 (101) 97 Room Air 03/11/18 09:48 97.7 76 18 147/72 (97) 98 Room Air I & O 03/12/18 07:00 Intake Total 1700 ml Output Total 2400 ml Balance -700 ml Blood pressures have been labile but now are normalized with Procardia Vital signs are otherwise stable patient is afebrile. The abdomen is benign. The surgical incision is clean dry and intact. The fundus is firm below the umbilicus. Extremities show clubbing cyanosis. There is no Homans sign. There is some pretibial pitting edema that is within normal range. Assessment and plan postoperative day number 4 status post repeat delivery doing well. Plan is for discharge home with follow-up in clinic EDINSON VASQUEZ MD Mar 12, 2018 07:34
[2018-03-12] MEDS ORDERED: Nifedipine PO (07:35)
--- NOTE | 2018-03-12 07:39 | Discharge Summary ---
Discharge Summary 36-5/7 weeks' gestation repeat due to severe preeclampsia This patient is a 33-year-old white female who was admitted from my clinic on last secondary to severe preeclampsia at 36-5/7 weeks gestation. Her blood pressure did not improve with placing it bed rest she was taken on that day for a repeat delivery. That procedure was performed without event patient recovered uneventfully. On Monday was postoperative day number 1 the patient was stable. Continued on her labetalol for blood pressure control. She ambulated, voiding, tolerating oral intake well and was stable through the day. On Monday patient blood pressure was somewhat labile but she was otherwise stable. We adjusted labetalol in response to her blood pressures. On Monday patient's blood pressures again remained labile and she was increased on the labetalol blood pressures continued to elevate and she was given a single dose of Procardia with good effect. Through the day she ambulated, voiding, tolerating oral intake well and was otherwise stable. Now on Monday which postoperative day number 4 patient is ambulating, voiding, tolerating oral intake well blood pressure isn't an acceptable range with Procardia. We'll change her medication to Procardia and plan for discharge home on this date. Possible diagnoses this hospitalization is 36-5/7 weeks' repeat delivery Secondary diagnoses are previous C-sections, severe preeclampsia, pre-existing hypertension, gestational diabetes Operation procedures include repeat delivery, spinal analgesia, monitoring, IV fluids and IV antibiotics Patient is given appropriate discharge instructions verbally and writing copy those are placed in chart. Discharge medications are Percocet and Motrin and Colace and Procardia patient is continue her own vitamins Clinical Quality Measures DVT/VTE Risk/Contraindication: Risk Factor Score Per Nursin RFS Level Per Nursing on Admit: 1=Low/No VTE PPX EDINSON VASQUEZ MD Mar 12, 2018 07:39
--- NOTE | 2018-03-12 08:50 | NUR ---
currently feeding infant. scheduled medications given, see eMar for further. will return for shift assessment.
[2018-03-12] MEDS: DOCUSATE SODIUM 100 MG (COLACE) CAP PO SCH (08:51)
[2018-03-12 09:15] VITALS: BP 140/80
--- NOTE | 2018-03-12 09:15 | NUR ---
initial shift assessment completed, see interventions for further. abd incision JEFF with steri-strips intact. bruising noted under incision. denies c/o's @ time. will cont to monitor.
[2018-03-12 13:17] VITALS: BP 131/80
--- NOTE | 2018-03-12 14:24 | NUR ---
Procardia Rx called into [facility] per pt's request.
--- NOTE | 2018-03-12 14:53 | NUR ---
dismissal instructions given, verbalizes understanding. reviewed follow up appointments and Rx's. signature page signed, placed on chart. Addendum: 03/12/18 at 1500 by IESHA OROZCO RN mother dismissed to rooming in status until infant dismissed from hospital.
== END 2018-03-12 14:53 | disposition home or self-care (01) | DRG 788 ==
LOC: LAB 09:43 → LDRP 12:25
PROVIDERS: ADMIT Obstetrics & Gynecology; ATTEND Obstetrics & Gynecology
PROC: 10D00Z1 Extraction of Products of Conception, Low, Open Approach (ICD-10-PCS; principal; 2018-03-08 19:01)
DX: O11.4 Pre-existing hypertension with pre-eclampsia, complicating childbirth (principal); O10.92 Unspecified pre-existing hypertension complicating childbirth; O24.425 Gestational diabetes mellitus in childbirth, controlled by oral hypoglycemic drugs; O34.211 Maternal care for low transverse scar from previous cesarean delivery; O40.3XX0 Polyhydramnios, third trimester, not applicable or unspecified; Z79.84 Long term (current) use of oral hypoglycemic drugs; Z3A.36 36 weeks gestation of pregnancy; Z37.0 Single live birth
CPT/HCPCS: 36415; 80053; 82570; 82962; 83615; 84156; 85025; 85027; 94664

== ENCOUNTER → 2018-03-08 | Outpatient (CLI) | payer OTHER ==
[~2018-03-08] MED LIST changes: +Nifedipine PO; +OXYC1TAB12 PO
== END ==
LOC: LABNPT 08:00
PROVIDERS: ATTEND Obstetrics & Gynecology
DX: O28.8 Other abnormal findings on antenatal screening of mother (principal)

== ENCOUNTER → 2019-01-24 | Outpatient (CLI) | payer OTHER ==
[~2019-01-24] MED LIST changes: +METF-397 PO; +Nifedipine PO; +OXYC1TAB12 PO
== END ==
LOC: LABNPT 14:44
PROVIDERS: ATTEND Obstetrics & Gynecology
DX: O14.03 Mild to moderate pre-eclampsia, third trimester (principal)
CPT/HCPCS: 82570; 84156

== ENCOUNTER 2019-01-25 14:29 | Inpatient (IN) | payer OTHER ==
[2019-01-25] VITALS (12 sets, daily range): BP systolic 146–159; BP diastolic 79–86
[~2019-01-25] VITALS: Ht 160 cm; Wt 81.7 kg
[~2019-01-25 14:29] MED LIST changes: -METF-397 PO
[2019-01-25] MEDS: D5 LR IV SOLUTION 1,000 ML IV SCH (15:17)
[2019-01-25] MEDS ORDERED: BETAMETHASONE ACE/NA PHOS 6 MG/ML (CELESTONE SOLUSPAN) ONE (17:34)
[2019-01-25] MEDS: BETAMETHASONE ACE/NA PHOS 6 MG/ML (CELESTONE SOLUSPAN) IM SCH (17:45)
--- NOTE | 2019-01-25 17:47 | History & Physical ---
History and Physical Date Seen by Provider: Jan 25, 2019 Time Seen by Provider: 17:42 This patient is a 33-year-old A3 3 white female who was seen in my clinic on this date with elevated blood pressure of 160/85. She is on Procardia XL for elevated blood pressure. In addition she had a urine protein creatinine ratio of 0.9. Her is complicated by gestational diabetes for which she is on metformin. Her previous was complicated by severe preeclampsia requiring delivery prior to 37 weeks gestation. She was sent to labor and delivery after the lab work was obtained through my clinic with preeclampsia for monitoring of blood pressure and monitoring of well-being and management until time for delivery. Plan will be to deliver 37 weeks gestation unless her until she developed severe preeclampsia which I think is quite likely at that point we would see with delivery. Her GBS culture was obtained yesterday and is not yet available. She denies rupture membranes or bleeding. She does feel baby moving. She has occasional tightening but denies significant contractions Allergy to methyldopa which causes a rash Medications are Procardia XL daily and metformin 500 mg twice a day and vitamins Medical social and surgical histories are per the antepartum record HEENT exam is normal Neck is supple no lymphadenopathy no thyromegaly Abdomen is gravid soft nontender nondistended Extremities show no clubbing or cyanosis there is no Homans sign. DTRs are elevated sounded 3+ to 4 over 4 globally Pelvic exam is deferred Lab work is in her chart that shows a urine protein creatinine ratio of 0.9 on this date for her platelet count today was 287,000 hemoglobin 11.5 her AST and ALTs were normal uric acid is 4.3 her LDH is 139. Yesterday this patient had a urine protein creatinine ratio of 0.55. monitor shows a reactive NST with occasional urinary irritability Assessment and plan 35-1/7 weeks gestation with preeclampsia bordering on severe. She will be monitored closely for progression of her preeclampsia with the plan for delivery for progression to severe preeclampsia or at the attainment at 37 weeks gestation. Patient knows she will have a as she has had 3 prior C-sections. We will continue her metformin and blood sugar testing as well as a diabetic diet. She will be given a dose of betamethasone 12 mg IM this evening and repeat that in 24 hours. We will continue the Procardia XL that she has been taking pretty much throughout her .. Patient understands and accepts the plan. 35-1/7 weeks gestation with preeclampsia/gestational diabetes/pre-existing hypertension/ 3 Allergies and Home Medications Allergies Coded Allergies: methyldopa (Verified Allergy, Mild, 03/11/18) Home Medications Docusate Sodium 100 Mg Capsule, 100 MG PO BID Prescribed by: EDINSON DO on 06/26/15 0740 Docusate Sodium 100 Mg Capsule, 100 MG PO BID Prescribed by: EDINSON DO on 03/10/18 1018 Ibuprofen 800 Mg Tablet, 800 MG PO Q6H Prescribed by: EDINSON DO on 06/26/15 0740 Ibuprofen 800 Mg Tablet, 800 MG PO Q6H Prescribed by: EDINSON DO on 03/10/18 1018 Oxycodone HCl/Acetaminophen 1 Each Tablet, 1-2 TAB PO Q4H PRN for PAIN Prescribed by: EDINSON DO on 06/26/15 0740 Oxycodone HCl/Acetaminophen 1 Each Tablet, 1 TAB PO Q4H PRN for PAIN-MODERATE TO SEVERE Prescribed by: EDINSON DO on 03/10/18 1018 Vits #90/Iron Fum/FA 1 Each Tablet, 1 EACH PO DAILY, (Reported) [Nifedipine] 30 MG TAB, 30 MG PO 0730 Prescribed by: EDINSON DO on 03/12/18 0735 Patient Home Medication List Home Medication List Reviewed: Yes EDINSON VASQUEZ MD Jan 25, 2019 17:47
[2019-01-26] VITALS (9 sets, daily range): BP systolic 125–173; BP diastolic 69–107
[2019-01-26] MEDS: D5 LR IV SOLUTION 1,000 ML IV SCH (04:32)
--- NOTE | 2019-01-26 08:12 | Progress Note ---
Standard Progress Note Progress Notes/Assess & Plan Date Seen by a Provider: Jan 26, 2019 Time Seen by a Provider: 08:09 Progress/Assessment & Plan This patient complains of a mild headache. She denies rupture membranes or bleeding she reports that she feels like she is beginning to get a bit swollen. She denies contractions Vital Signs Date Time Temp Pulse Resp B/P (MAP) Pulse Ox O2 Delivery O2 Flow Rate FiO2 01/26/19 04:35 36.5 80 18 130/69 (89) Room Air 01/26/19 00:18 35.4 84 18 155/89 (111) 99 Room Air 01/25/19 20:06 36.3 89 18 152/85 (107) 97 Room Air 01/25/19 16:55 37.0 86 18 153/86 (108) Room Air 01/25/19 16:40 94 18 153/84 (107) Room Air 01/25/19 16:25 90 18 148/81 (103) Room Air 01/25/19 16:10 97 18 146/81 (102) Room Air 01/25/19 15:55 87 18 147/83 (104) Room Air 01/25/19 15:25 88 18 147/79 (101) Room Air 01/25/19 15:10 89 18 148/80 (102) Room Air 01/25/19 14:55 93 18 149/81 (103) Room Air 01/25/19 14:40 91 18 148/83 (104) Room Air 01/25/19 14:20 Room Air 01/25/19 14:20 36.2 83 18 98 Room Air 01/25/19 14:19 36.2 83 18 159/84 (109) 98 Room Air I & O 01/26/19 07:00 Intake Total 1000 ml Balance 1000 ml Blood pressures continued to be in the mild preeclampsia range consistently in the 140s and 150s systolically Abdomen is benign. Fundus is nontender Extremities show no clubbing cyanosis. There is some pretibial pitting edema. DTRs are 3+ to 4 globally Assessment and plan this is hospital day 2 with the patient now at 35-2/7 weeks' gestation with overt preeclampsia and a history of severe preeclampsia. We will continue minimizing stimulation and activity to suppress the blood pressure, twice daily NSTs for assessment of well-being, we'll repeat her lab work on Monday and when necessary if the change in condition. Patient is stable with mild preeclampsia at this point. Condition is guarded at this patient does have a history of rapid progression to severe preeclampsia EDINSON VASQUEZ MD Jan 26, 2019 08:12
[2019-01-26] MEDS: LACTATED RINGERS 1,000 ML IV SCH (09:21)
[2019-01-26] MEDS ORDERED: METF-397 PO (14:35)
[2019-01-26] MEDS ORDERED: PATIENT MAY USE OWN MEDS, ALL MC SCH (15:00)
[2019-01-26] MEDS: BETAMETHASONE ACE/NA PHOS 6 MG/ML (CELESTONE SOLUSPAN) IM SCH (17:41)
[2019-01-26] MEDS: metFORMIN 500 MG (GLUCOPHAGE) TAB PO SCH (17:42)
[2019-01-27] VITALS (7 sets, daily range): BP systolic 140–170; BP diastolic 72–90
[2019-01-27] MEDS: LACTATED RINGERS 1,000 ML IV SCH (06:14)
[2019-01-27] MEDS: NIFEdipine ER 30 MG (PROCARDIA XL) TAB PO SCH (06:37)
[2019-01-27] MEDS: CATHETER FLUSH 10 ML SYR IV SCH (07:59)
[2019-01-27] MEDS: metFORMIN 500 MG (GLUCOPHAGE) TAB PO SCH ×2 (08:05→19:20)
--- NOTE | 2019-01-27 20:32 | Progress Note ---
Standard Progress Note Progress Notes/Assess & Plan Date Seen by a Provider: Jan 27, 2019 Time Seen by a Provider: 20:28 Progress/Assessment & Plan This patient complains of a mild headache. She denies rupture membranes or bleeding she reports that she feels like she is beginning to get a bit swollen. She denies contractions Vital Signs Date Time Temp Pulse Resp B/P (MAP) Pulse Ox O2 Delivery O2 Flow Rate FiO2 01/26/19 04:35 36.5 80 18 130/69 (89) Room Air 01/26/19 00:18 35.4 84 18 155/89 (111) 99 Room Air 01/25/19 20:06 36.3 89 18 152/85 (107) 97 Room Air 01/25/19 16:55 37.0 86 18 153/86 (108) Room Air 01/25/19 16:40 94 18 153/84 (107) Room Air 01/25/19 16:25 90 18 148/81 (103) Room Air 01/25/19 16:10 97 18 146/81 (102) Room Air 01/25/19 15:55 87 18 147/83 (104) Room Air 01/25/19 15:25 88 18 147/79 (101) Room Air 01/25/19 15:10 89 18 148/80 (102) Room Air 01/25/19 14:55 93 18 149/81 (103) Room Air 01/25/19 14:40 91 18 148/83 (104) Room Air 01/25/19 14:20 Room Air 01/25/19 14:20 36.2 83 18 98 Room Air 01/25/19 14:19 36.2 83 18 159/84 (109) 98 Room Air I & O 01/26/19 07:00 Intake Total 1000 ml Balance 1000 ml Blood pressures continued to be in the mild preeclampsia range consistently in the 140s and 150s systolically Abdomen is benign. Fundus is nontender Extremities show no clubbing cyanosis. There is some pretibial pitting edema. DTRs are 3+ to 4 globally Assessment and plan this is hospital day 2 with the patient now at 35-2/7 weeks' gestation with overt preeclampsia and a history of severe preeclampsia. We will continue minimizing stimulation and activity to suppress the blood pressure, twice daily NSTs for assessment of well-being, we'll repeat her lab work on Monday and when necessary if the change in condition. Patient is stable with mild preeclampsia at this point. Condition is guarded at this patient does have a history of rapid progression to severe preeclampsia January 27, 2019 This patient is without complaint. She denies chest pain, denies shortness breath, denies nausea vomiting, and denies headache. She denies rupture membranes or bleeding. She does feel baby moving. She has rare contractions. She is testing her own blood sugars and watching her gestational diabetes diet and her blood sugars per her report have been running generally less than 120 at 2 hours postprandial. She did have several elevated blood sugars while she was receiving an IV fluids containing D5 that has been changed and her blood sugars have returned to their baseline on her metformin Vital Signs Date Time Temp Pulse Resp B/P (MAP) Pulse Ox O2 Delivery O2 Flow Rate FiO2 01/27/19 15:26 36.9 86 18 140/72 (94) 97 Room Air 01/27/19 11:15 37.2 92 18 153/78 (103) 97 Room Air 01/27/19 07:50 85 18 148/82 (104) Room Air 01/27/19 07:33 36.7 82 18 165/90 (115) 98 Room Air 01/27/19 07:33 98 Room Air 01/27/19 02:40 74 18 140/75 (96) 99 Room Air 01/26/19 22:40 36.6 83 18 157/77 (103) 99 Room Air 01/26/19 21:01 93 18 I & O 01/27/19 07:00 Intake Total 1400 ml Balance 1400 ml Blood pressures are persistently elevated however they seem to be hovering just below the severe preeclampsia range Patient's abdomen is gravid soft nontender Extremities show no clubbing or cyanosis. There is no Homans sign. Her DTRs are brisk at 3+ to 4 over 4 Pelvic exam is deferred NSTs when performed is reactive Assessment and plan 35 weeks and 3 days on hospital day 3 with persistently elevated blood pressures flirting with severe preeclampsia -patient does understand that when blood pressures are persistently in the severe preeclampsia range that it will be necessary to proceed with delivery. We will continue close blood pressure monitoring and repeat lab work tomorrow EDINSON VASQUEZ MD Jan 27, 2019 20:32
[2019-01-27] MEDS: hydrOXYzine (VISTARIL/ATARAX) 25 MG capsule/tablet PO PRN (20:39)
[2019-01-28 00:10] VITALS: BP 139/70
[2019-01-28] MEDS: LACTATED RINGERS 1,000 ML IV SCH (03:30)
[2019-01-28 04:00] VITALS: BP 143/79
[2019-01-28] MEDS: NIFEdipine ER 30 MG (PROCARDIA XL) TAB PO SCH (06:33)
[2019-01-28] MEDS: metFORMIN 500 MG (GLUCOPHAGE) TAB PO SCH ×2 (07:15→17:25)
--- NOTE | 2019-01-28 08:05 | Progress Note ---
Standard Progress Note Progress Notes/Assess & Plan Date Seen by a Provider: Jan 28, 2019 Time Seen by a Provider: 08:03 Progress/Assessment & Plan This patient complains of a mild headache. She denies rupture membranes or bleeding she reports that she feels like she is beginning to get a bit swollen. She denies contractions Vital Signs Date Time Temp Pulse Resp B/P (MAP) Pulse Ox O2 Delivery O2 Flow Rate FiO2 01/26/19 04:35 36.5 80 18 130/69 (89) Room Air 01/26/19 00:18 35.4 84 18 155/89 (111) 99 Room Air 01/25/19 20:06 36.3 89 18 152/85 (107) 97 Room Air 01/25/19 16:55 37.0 86 18 153/86 (108) Room Air 01/25/19 16:40 94 18 153/84 (107) Room Air 01/25/19 16:25 90 18 148/81 (103) Room Air 01/25/19 16:10 97 18 146/81 (102) Room Air 01/25/19 15:55 87 18 147/83 (104) Room Air 01/25/19 15:25 88 18 147/79 (101) Room Air 01/25/19 15:10 89 18 148/80 (102) Room Air 01/25/19 14:55 93 18 149/81 (103) Room Air 01/25/19 14:40 91 18 148/83 (104) Room Air 01/25/19 14:20 Room Air 01/25/19 14:20 36.2 83 18 98 Room Air 01/25/19 14:19 36.2 83 18 159/84 (109) 98 Room Air I & O 01/26/19 07:00 Intake Total 1000 ml Balance 1000 ml Blood pressures continued to be in the mild preeclampsia range consistently in the 140s and 150s systolically Abdomen is benign. Fundus is nontender Extremities show no clubbing cyanosis. There is some pretibial pitting edema. DTRs are 3+ to 4 globally Assessment and plan this is hospital day 2 with the patient now at 35-2/7 weeks' gestation with overt preeclampsia and a history of severe preeclampsia. We will continue minimizing stimulation and activity to suppress the blood pressure, twice daily NSTs for assessment of well-being, we'll repeat her lab work on Monday and when necessary if the change in condition. Patient is stable with mild preeclampsia at this point. Condition is guarded at this patient does have a history of rapid progression to severe preeclampsia January 27, 2019 This patient is without complaint. She denies chest pain, denies shortness breath, denies nausea vomiting, and denies headache. She denies rupture membranes or bleeding. She does feel baby moving. She has rare contractions. She is testing her own blood sugars and watching her gestational diabetes diet and her blood sugars per her report have been running generally less than 120 at 2 hours postprandial. She did have several elevated blood sugars while she was receiving an IV fluids containing D5 that has been changed and her blood sugars have returned to their baseline on her metformin Vital Signs Date Time Temp Pulse Resp B/P (MAP) Pulse Ox O2 Delivery O2 Flow Rate FiO2 01/27/19 15:26 36.9 86 18 140/72 (94) 97 Room Air 01/27/19 11:15 37.2 92 18 153/78 (103) 97 Room Air 01/27/19 07:50 85 18 148/82 (104) Room Air 01/27/19 07:33 36.7 82 18 165/90 (115) 98 Room Air 01/27/19 07:33 98 Room Air 01/27/19 02:40 74 18 140/75 (96) 99 Room Air 01/26/19 22:40 36.6 83 18 157/77 (103) 99 Room Air 01/26/19 21:01 93 18 I & O 01/27/19 07:00 Intake Total 1400 ml Balance 1400 ml Blood pressures are persistently elevated however they seem to be hovering just below the severe preeclampsia range Patient's abdomen is gravid soft nontender Extremities show no clubbing or cyanosis. There is no Homans sign. Her DTRs are brisk at 3+ to 4 over 4 Pelvic exam is deferred NSTs when performed is reactive Assessment and plan 35 weeks and 3 days on hospital day 3 with persistently elevated blood pressures flirting with severe preeclampsia -patient does understand that when blood pressures are persistently in the severe preeclampsia range that it will be necessary to proceed with delivery. We will continue close blood pressure monitoring and repeat lab work tomorrow January 28, 2019 Patient is without complaint. She is essentially unchanged from yesterday. Vital Signs Date Time Temp Pulse Resp B/P (MAP) Pulse Ox O2 Delivery O2 Flow Rate FiO2 01/28/19 04:00 36.6 18 143/79 (100) 98 Room Air 01/28/19 00:10 75 18 139/70 (93) Room Air 01/27/19 20:05 85 18 158/83 (108) 01/27/19 19:55 83 18 170/82 (111) 01/27/19 15:26 36.9 86 18 140/72 (94) 97 Room Air 01/27/19 11:15 37.2 92 18 153/78 (103) 97 Room Air Her blood pressures remained labile consistently less than 160/100 but episodically exceeding that with a high being 170/82 last evening. Lab work is pending The abdomen is benign Extremities show no clubbing or cyanosis. There is some pretibial pitting edema Assessment and plan hospital day 4 in a patient with preeclampsia bordering on severe preeclampsia. Plan is for delivery when she shows progression of preecla mpsia to persistent severe preeclampsia. Is doubtful that she will attain 37 weeks but if she should she would be delivered at that time EDINSON VASQUEZ MD Jan 28, 2019 08:05
[2019-01-28 09:50] VITALS: BP 154/78
[2019-01-28 10:28] LABS: BASOPHILS % (AUTO) 0 % (0-10); EOSINOPHILS % (AUTO) 0 % (0-10); HEMATOCRIT 34 % (35-52); HEMOGLOBIN 10.6 G/DL (11.5-16.0); LYMPHOCYTES # (AUTO) 2.1 X 10^3 (1.0-4.0); LYMPHOCYTES % (AUTO) 30 % (12-44); MEAN CORPUSCULAR HEMOGLOBIN 26 PG (25-34); MEAN CORPUSCULAR HGB CONC 32 G/DL (32-36); MEAN CORPUSCULAR VOLUME 83 FL (80-99); MEAN PLATELET VOLUME 9.4 FL (7.4-10.4); MONOCYTES # (AUTO) 0.9 X 10^3 (0.0-1.0); MONOCYTES % (AUTO) 13 % (0-12); NEUTROPHILS # (AUTO) 3.9 X 10^3 (1.8-7.8); NEUTROPHILS % (AUTO) 56 % (42-75); PLATELET COUNT 292 10^3/uL (130-400); RED CELL DISTRIBUTION WIDTH 16.2 % (10.0-14.5); WHITE BLOOD COUNT 6.8 10^3/uL (4.3-11.0)
[2019-01-28 10:46] LABS: ALANINE AMINOTRANSFERASE 9 U/L (0-55); ALBUMIN 3.4 GM/DL (3.2-4.5); ALKALINE PHOSPHATASE 87 U/L (40-136); BILIRUBIN,TOTAL 0.7 MG/DL (0.1-1.0); BUN/CREATININE RATIO 14; CALCIUM 8.6 MG/DL (8.5-10.1); CARBON DIOXIDE 20 MMOL/L (21-32); CHLORIDE 107 MMOL/L (98-107); CREATININE SERUM 0.58 MG/DL (0.60-1.30); GFR ESTIMATED > 60; GLUCOSE 81 MG/DL (70-105); POTASSIUM 3.8 MMOL/L (3.6-5.0); SODIUM 136 MMOL/L (135-145); TOTAL PROTEIN 6.8 GM/DL (6.4-8.2)
[2019-01-28 15:45] VITALS: BP 155/86
[2019-01-28] MEDS: CATHETER FLUSH 10 ML SYR IV SCH (20:46)
[2019-01-28 21:14] VITALS: BP 160/82
[2019-01-28] MEDS: hydrOXYzine (VISTARIL/ATARAX) 25 MG capsule/tablet PO PRN (22:43)
[2019-01-28 23:57] VITALS: BP 139/73
[2019-01-29] MEDS: LACTATED RINGERS 1,000 ML IV SCH (01:11)
[2019-01-29 04:30] VITALS: BP 134/71
[2019-01-29] MEDS: CATHETER FLUSH 10 ML SYR IV SCH ×3 (07:45→18:10)
[2019-01-29] MEDS: NIFEdipine ER 30 MG (PROCARDIA XL) TAB PO SCH (07:45)
[2019-01-29] MEDS: metFORMIN 500 MG (GLUCOPHAGE) TAB PO SCH ×2 (07:45→18:04)
--- NOTE | 2019-01-29 07:48 | Progress Note ---
Standard Progress Note Progress Notes/Assess & Plan Date Seen by a Provider: Jan 29, 2019 Time Seen by a Provider: 07:43 Progress/Assessment & Plan This patient complains of a mild headache. She denies rupture membranes or bleeding she reports that she feels like she is beginning to get a bit swollen. She denies contractions Vital Signs Date Time Temp Pulse Resp B/P (MAP) Pulse Ox O2 Delivery O2 Flow Rate FiO2 01/26/19 04:35 36.5 80 18 130/69 (89) Room Air 01/26/19 00:18 35.4 84 18 155/89 (111) 99 Room Air 01/25/19 20:06 36.3 89 18 152/85 (107) 97 Room Air 01/25/19 16:55 37.0 86 18 153/86 (108) Room Air 01/25/19 16:40 94 18 153/84 (107) Room Air 01/25/19 16:25 90 18 148/81 (103) Room Air 01/25/19 16:10 97 18 146/81 (102) Room Air 01/25/19 15:55 87 18 147/83 (104) Room Air 01/25/19 15:25 88 18 147/79 (101) Room Air 01/25/19 15:10 89 18 148/80 (102) Room Air 01/25/19 14:55 93 18 149/81 (103) Room Air 01/25/19 14:40 91 18 148/83 (104) Room Air 01/25/19 14:20 Room Air 01/25/19 14:20 36.2 83 18 98 Room Air 01/25/19 14:19 36.2 83 18 159/84 (109) 98 Room Air I & O 01/26/19 07:00 Intake Total 1000 ml Balance 1000 ml Blood pressures continued to be in the mild preeclampsia range consistently in the 140s and 150s systolically Abdomen is benign. Fundus is nontender Extremities show no clubbing cyanosis. There is some pretibial pitting edema. DTRs are 3+ to 4 globally Assessment and plan this is hospital day 2 with the patient now at 35-2/7 weeks' gestation with overt preeclampsia and a history of severe preeclampsia. We will continue minimizing stimulation and activity to suppress the blood pressure, twice daily NSTs for assessment of well-being, we'll repeat her lab work on Monday and when necessary if the change in condition. Patient is stable with mild preeclampsia at this point. Condition is guarded at this patient does have a history of rapid progression to severe preeclampsia January 27, 2019 This patient is without complaint. She denies chest pain, denies shortness breath, denies nausea vomiting, and denies headache. She denies rupture membranes or bleeding. She does feel baby moving. She has rare contractions. She is testing her own blood sugars and watching her gestational diabetes diet and her blood sugars per her report have been running generally less than 120 at 2 hours postprandial. She did have several elevated blood sugars while she was receiving an IV fluids containing D5 that has been changed and her blood sugars have returned to their baseline on her metformin Vital Signs Date Time Temp Pulse Resp B/P (MAP) Pulse Ox O2 Delivery O2 Flow Rate FiO2 01/27/19 15:26 36.9 86 18 140/72 (94) 97 Room Air 01/27/19 11:15 37.2 92 18 153/78 (103) 97 Room Air 01/27/19 07:50 85 18 148/82 (104) Room Air 01/27/19 07:33 36.7 82 18 165/90 (115) 98 Room Air 01/27/19 07:33 98 Room Air 01/27/19 02:40 74 18 140/75 (96) 99 Room Air 01/26/19 22:40 36.6 83 18 157/77 (103) 99 Room Air 01/26/19 21:01 93 18 I & O 01/27/19 07:00 Intake Total 1400 ml Balance 1400 ml Blood pressures are persistently elevated however they seem to be hovering just below the severe preeclampsia range Patient's abdomen is gravid soft nontender Extremities show no clubbing or cyanosis. There is no Homans sign. Her DTRs are brisk at 3+ to 4 over 4 Pelvic exam is deferred NSTs when performed is reactive Assessment and plan 35 weeks and 3 days on hospital day 3 with persistently elevated blood pressures flirting with severe preeclampsia -patient does understand that when blood pressures are persistently in the severe preeclampsia range that it will be necessary to proceed with delivery. We will continue close blood pressure monitoring and repeat lab work tomorrow January 28, 2019 Patient is without complaint. She is essentially unchanged from yesterday. Vital Signs Date Time Temp Pulse Resp B/P (MAP) Pulse Ox O2 Delivery O2 Flow Rate FiO2 01/28/19 04:00 36.6 18 143/79 (100) 98 Room Air 01/28/19 00:10 75 18 139/70 (93) Room Air 01/27/19 20:05 85 18 158/83 (108) 01/27/19 19:55 83 18 170/82 (111) 01/27/19 15:26 36.9 86 18 140/72 (94) 97 Room Air 01/27/19 11:15 37.2 92 18 153/78 (103) 97 Room Air Her blood pressures remained labile consistently less than 160/100 but episodically exceeding that with a high being 170/82 last evening. Lab work is pending The abdomen is benign Extremities show no clubbing or cyanosis. There is some pretibial pitting edema Assessment and plan hospital day 4 in a patient with preeclampsia bordering on severe preeclampsia. Plan is for delivery when she shows progression of preecla mpsia to persistent severe preeclampsia. Is doubtful that she will attain 37 weeks but if she should she would be delivered at that time January 29, 2019 This patient is without complaint. She denies headache, denies shortness of breath, contractions, denies nausea vomiting. Vital Signs Date Time Temp Pulse Resp B/P (MAP) Pulse Ox O2 Delivery O2 Flow Rate FiO2 01/29/19 06:07 18 01/29/19 04:30 36.0 81 16 134/71 (92) 98 Room Air 01/28/19 23:57 36.6 81 16 139/73 (95) 98 Room Air 01/28/19 21:14 36.2 82 18 160/82 (108) 97 Room Air 01/28/19 20:57 Room Air 01/28/19 15:45 36.6 18 155/86 (109) Room Air 01/28/19 10:20 93 18 01/28/19 10:00 Room Air 01/28/19 09:50 36.6 20 154/78 (103) Room Air I & O 01/29/19 07:00 Intake Total 700 ml Balance 700 ml Blood pressure is relatively stable episodically elevated acceptable with the patient at rest Laboratory Tests Test 01/28/19 10:20 Range/Units White Blood Count 6.8 4.3-11.0 10^3/uL Red Blood Count 4.06 L 4.35-5.85 10^6/uL Hemoglobin 10.6 L 11.5-16.0 G/DL Hematocrit 34 L 35-52 % Mean Corpuscular Volume 83 80-99 FL Mean Corpuscular Hemoglobin 26 25-34 PG Mean Corpuscular Hemoglobin Concent 32 32-36 G/DL Red Cell Distribution Width 16.2 H 10.0-14.5 % Platelet Count 292 130-400 10^3/uL Mean Platelet Volume 9.4 7.4-10.4 FL Neutrophils (%) (Auto) 56 42-75 % Lymphocytes (%) (Auto) 30 12-44 % Monocytes (%) (Auto) 13 H 0-12 % Eosinophils (%) (Auto) 0 0-10 % Basophils (%) (Auto) 0 0-10 % Neutrophils # (Auto) 3.9 1.8-7.8 X 10^3 Lymphocytes # (Auto) 2.1 1.0-4.0 X 10^3 Monocytes # (Auto) 0.9 0.0-1.0 X 10^3 Eosinophils # (Auto) 0.0 0.0-0.3 10^3/uL Basophils # (Auto) 0.0 0.0-0.1 10^3/uL Sodium Level 136 135-145 MMOL/L Potassium Level 3.8 3.6-5.0 MMOL/L Chloride Level 107 98-107 MMOL/L Carbon Dioxide Level 20 L 21-32 MMOL/L Anion Gap 9 5-14 MMOL/L Blood Urea Nitrogen 8 7-18 MG/DL Creatinine 0.58 L 0.60-1.30 MG/DL Estimat Glomerular Filtration Rate > 60 BUN/Creatinine Ratio 14 Glucose Level 81 70-105 MG/DL Uric Acid 5.0 2.6-7.2 MG/DL Calcium Level 8.6 8.5-10.1 MG/DL Corrected Calcium 9.1 8.5-10.1 MG/DL Total Bilirubin 0.7 0.1-1.0 MG/DL Aspartate Amino Transf (AST/SGOT) 11 5-34 U/L Alanine Aminotransferase (ALT/SGPT) 9 0-55 U/L Alkaline Phosphatase 87 40-136 U/L Lactate Dehydrogenase 134 125-220 U/L Total Protein 6.8 6.4-8.2 GM/DL Albumin 3.4 3.2-4.5 GM/DL Patient's lab work is stable The abdomen is gravid and nontender Extremities show no clubbing or cyanosis Assessment and plan hospital day number 5 and currently 35+ weeks gestation preeclampsia bordering on severe preeclampsia. His blood pressures do elevated with activity she remains essentially at bed rest. pLan is for delivery for severe preeclampsia or at 37 weeks gestation. Patient understands that limiting activity likely will slow the progression to severe preeclampsia could occur at any time. We are alert to the increased risk for progression to eclampsia as well EDINSON VASQUEZ MD Jan 29, 2019 07:48
[2019-01-29 08:30] VITALS: BP 145/78
[2019-01-29 11:47] VITALS: BP 142/76
[2019-01-29 15:48] VITALS: BP 152/83
[2019-01-29 19:50] VITALS: BP 154/95
[2019-01-29] MEDS: hydrOXYzine (VISTARIL/ATARAX) 25 MG capsule/tablet PO PRN (22:29)
[2019-01-30 00:14] VITALS: BP 156/88
[2019-01-30 04:10] VITALS: BP 146/85
[2019-01-30] MEDS: metFORMIN 500 MG (GLUCOPHAGE) TAB PO SCH ×2 (06:11→20:54)
[2019-01-30] MEDS: NIFEdipine ER 30 MG (PROCARDIA XL) TAB PO SCH (06:12)
[2019-01-30 08:30] VITALS: BP 136/77
--- NOTE | 2019-01-30 08:40 | Progress Note ---
Standard Progress Note Progress Notes/Assess & Plan Date Seen by a Provider: Jan 30, 2019 Time Seen by a Provider: 08:36 Progress/Assessment & Plan This patient complains of a mild headache. She denies rupture membranes or bleeding she reports that she feels like she is beginning to get a bit swollen. She denies contractions Vital Signs Date Time Temp Pulse Resp B/P (MAP) Pulse Ox O2 Delivery O2 Flow Rate FiO2 01/26/19 04:35 36.5 80 18 130/69 (89) Room Air 01/26/19 00:18 35.4 84 18 155/89 (111) 99 Room Air 01/25/19 20:06 36.3 89 18 152/85 (107) 97 Room Air 01/25/19 16:55 37.0 86 18 153/86 (108) Room Air 01/25/19 16:40 94 18 153/84 (107) Room Air 01/25/19 16:25 90 18 148/81 (103) Room Air 01/25/19 16:10 97 18 146/81 (102) Room Air 01/25/19 15:55 87 18 147/83 (104) Room Air 01/25/19 15:25 88 18 147/79 (101) Room Air 01/25/19 15:10 89 18 148/80 (102) Room Air 01/25/19 14:55 93 18 149/81 (103) Room Air 01/25/19 14:40 91 18 148/83 (104) Room Air 01/25/19 14:20 Room Air 01/25/19 14:20 36.2 83 18 98 Room Air 01/25/19 14:19 36.2 83 18 159/84 (109) 98 Room Air I & O 01/26/19 07:00 Intake Total 1000 ml Balance 1000 ml Blood pressures continued to be in the mild preeclampsia range consistently in the 140s and 150s systolically Abdomen is benign. Fundus is nontender Extremities show no clubbing cyanosis. There is some pretibial pitting edema. DTRs are 3+ to 4 globally Assessment and plan this is hospital day 2 with the patient now at 35-2/7 weeks' gestation with overt preeclampsia and a history of severe preeclampsia. We will continue minimizing stimulation and activity to suppress the blood pressure, twice daily NSTs for assessment of well-being, we'll repeat her lab work on Monday and when necessary if the change in condition. Patient is stable with mild preeclampsia at this point. Condition is guarded at this patient does have a history of rapid progression to severe preeclampsia January 27, 2019 This patient is without complaint. She denies chest pain, denies shortness breath, denies nausea vomiting, and denies headache. She denies rupture membranes or bleeding. She does feel baby moving. She has rare contractions. She is testing her own blood sugars and watching her gestational diabetes diet and her blood sugars per her report have been running generally less than 120 at 2 hours postprandial. She did have several elevated blood sugars while she was receiving an IV fluids containing D5 that has been changed and her blood sugars have returned to their baseline on her metformin Vital Signs Date Time Temp Pulse Resp B/P (MAP) Pulse Ox O2 Delivery O2 Flow Rate FiO2 01/27/19 15:26 36.9 86 18 140/72 (94) 97 Room Air 01/27/19 11:15 37.2 92 18 153/78 (103) 97 Room Air 01/27/19 07:50 85 18 148/82 (104) Room Air 01/27/19 07:33 36.7 82 18 165/90 (115) 98 Room Air 01/27/19 07:33 98 Room Air 01/27/19 02:40 74 18 140/75 (96) 99 Room Air 01/26/19 22:40 36.6 83 18 157/77 (103) 99 Room Air 01/26/19 21:01 93 18 I & O 01/27/19 07:00 Intake Total 1400 ml Balance 1400 ml Blood pressures are persistently elevated however they seem to be hovering just below the severe preeclampsia range Patient's abdomen is gravid soft nontender Extremities show no clubbing or cyanosis. There is no Homans sign. Her DTRs are brisk at 3+ to 4 over 4 Pelvic exam is deferred NSTs when performed is reactive Assessment and plan 35 weeks and 3 days on hospital day 3 with persistently elevated blood pressures flirting with severe preeclampsia -patient does understand that when blood pressures are persistently in the severe preeclampsia range that it will be necessary to proceed with delivery. We will continue close blood pressure monitoring and repeat lab work tomorrow January 28, 2019 Patient is without complaint. She is essentially unchanged from yesterday. Vital Signs Date Time Temp Pulse Resp B/P (MAP) Pulse Ox O2 Delivery O2 Flow Rate FiO2 01/28/19 04:00 36.6 18 143/79 (100) 98 Room Air 01/28/19 00:10 75 18 139/70 (93) Room Air 01/27/19 20:05 85 18 158/83 (108) 01/27/19 19:55 83 18 170/82 (111) 01/27/19 15:26 36.9 86 18 140/72 (94) 97 Room Air 01/27/19 11:15 37.2 92 18 153/78 (103) 97 Room Air Her blood pressures remained labile consistently less than 160/100 but episodically exceeding that with a high being 170/82 last evening. Lab work is pending The abdomen is benign Extremities show no clubbing or cyanosis. There is some pretibial pitting edema Assessment and plan hospital day 4 in a patient with preeclampsia bordering on severe preeclampsia. Plan is for delivery when she shows progression of preecla mpsia to persistent severe preeclampsia. Is doubtful that she will attain 37 weeks but if she should she would be delivered at that time January 29, 2019 This patient is without complaint. She denies headache, denies shortness of breath, contractions, denies nausea vomiting. Vital Signs Date Time Temp Pulse Resp B/P (MAP) Pulse Ox O2 Delivery O2 Flow Rate FiO2 01/29/19 06:07 18 01/29/19 04:30 36.0 81 16 134/71 (92) 98 Room Air 01/28/19 23:57 36.6 81 16 139/73 (95) 98 Room Air 01/28/19 21:14 36.2 82 18 160/82 (108) 97 Room Air 01/28/19 20:57 Room Air 01/28/19 15:45 36.6 18 155/86 (109) Room Air 01/28/19 10:20 93 18 01/28/19 10:00 Room Air 01/28/19 09:50 36.6 20 154/78 (103) Room Air I & O 01/29/19 07:00 Intake Total 700 ml Balance 700 ml Blood pressure is relatively stable episodically elevated acceptable with the patient at rest Laboratory Tests Test 01/28/19 10:20 Range/Units White Blood Count 6.8 4.3-11.0 10^3/uL Red Blood Count 4.06 L 4.35-5.85 10^6/uL Hemoglobin 10.6 L 11.5-16.0 G/DL Hematocrit 34 L 35-52 % Mean Corpuscular Volume 83 80-99 FL Mean Corpuscular Hemoglobin 26 25-34 PG Mean Corpuscular Hemoglobin Concent 32 32-36 G/DL Red Cell Distribution Width 16.2 H 10.0-14.5 % Platelet Count 292 130-400 10^3/uL Mean Platelet Volume 9.4 7.4-10.4 FL Neutrophils (%) (Auto) 56 42-75 % Lymphocytes (%) (Auto) 30 12-44 % Monocytes (%) (Auto) 13 H 0-12 % Eosinophils (%) (Auto) 0 0-10 % Basophils (%) (Auto) 0 0-10 % Neutrophils # (Auto) 3.9 1.8-7.8 X 10^3 Lymphocytes # (Auto) 2.1 1.0-4.0 X 10^3 Monocytes # (Auto) 0.9 0.0-1.0 X 10^3 Eosinophils # (Auto) 0.0 0.0-0.3 10^3/uL Basophils # (Auto) 0.0 0.0-0.1 10^3/uL Sodium Level 136 135-145 MMOL/L Potassium Level 3.8 3.6-5.0 MMOL/L Chloride Level 107 98-107 MMOL/L Carbon Dioxide Level 20 L 21-32 MMOL/L Anion Gap 9 5-14 MMOL/L Blood Urea Nitrogen 8 7-18 MG/DL Creatinine 0.58 L 0.60-1.30 MG/DL Estimat Glomerular Filtration Rate > 60 BUN/Creatinine Ratio 14 Glucose Level 81 70-105 MG/DL Uric Acid 5.0 2.6-7.2 MG/DL Calcium Level 8.6 8.5-10.1 MG/DL Corrected Calcium 9.1 8.5-10.1 MG/DL Total Bilirubin 0.7 0.1-1.0 MG/DL Aspartate Amino Transf (AST/SGOT) 11 5-34 U/L Alanine Aminotransferase (ALT/SGPT) 9 0-55 U/L Alkaline Phosphatase 87 40-136 U/L Lactate Dehydrogenase 134 125-220 U/L Total Protein 6.8 6.4-8.2 GM/DL Albumin 3.4 3.2-4.5 GM/DL Patient's lab work is stable The abdomen is gravid and nontender Extremities show no clubbing or cyanosis Assessment and plan hospital day number 5 and currently 35+ weeks gestation preeclampsia bordering on severe preeclampsia. His blood pressures do elevated with activity she remains essentially at bed rest. pLan is for delivery for severe preeclampsia or at 37 weeks gestation. Patient understands that limiting activity likely will slow the progression to severe preeclampsia could occur at any time. We are alert to the increased risk for progression to eclampsia as well January 30, 2019 Patient has no specific complaints. She denies rupture membranes or bleeding. She does feel baby moving. He has had a mild headache. Vital Signs Date Time Temp Pulse Resp B/P (MAP) Pulse Ox O2 Delivery O2 Flow Rate FiO2 01/30/19 08:30 36.6 92 18 136/77 (96) 96 Room Air 01/30/19 04:10 36.5 78 18 146/85 (105) 96 Room Air 01/30/19 00:14 36.4 88 18 156/88 (110) 96 Room Air 01/29/19 19:50 36.6 87 18 154/95 (114) 97 Room Air 01/29/19 15:48 36.4 90 18 152/83 (106) 98 Room Air 01/29/19 11:47 36.8 90 18 142/76 (98) 97 Room Air 01/29/19 11:47 90 18 142/76 Blood pressures remained elevated in the high range for preeclampsia Abdomen is gravid soft nontender Extremities show no clubbing or cyanosis. There is no Homans sign. DTRs are elevated 3+/4 over 4 Assessment and plan hospital day number 6 at 35-6/7 weeks' gestation with preeclampsia bordering on severe preeclampsia plan is to continue blood pressure and monitoring with delivery For severe preeclampsia or at 37 weeks gestation EDINSON VASQUEZ MD Jan 30, 2019 08:40
[2019-01-30] MEDS: LACTATED RINGERS 1,000 ML IV SCH (11:05)
[2019-01-30 12:35] VITALS: BP 151/79
[2019-01-30 16:28] VITALS: BP 143/84
[2019-01-30 20:56] VITALS: BP 156/95
[2019-01-30] MEDS: hydrOXYzine (VISTARIL/ATARAX) 25 MG capsule/tablet PO PRN (22:55)
[2019-01-31] VITALS (10 sets, daily range): BP systolic 119–155; BP diastolic 71–87
[2019-01-31] MEDS: metFORMIN 500 MG (GLUCOPHAGE) TAB PO SCH ×2 (07:46→18:00)
[2019-01-31] MEDS: NIFEdipine ER 30 MG (PROCARDIA XL) TAB PO SCH (07:46)
--- NOTE | 2019-01-31 08:58 | Progress Note ---
Standard Progress Note Progress Notes/Assess & Plan Date Seen by a Provider: Jan 31, 2019 Time Seen by a Provider: 08:54 Progress/Assessment & Plan This patient complains of a mild headache. She denies rupture membranes or bleeding she reports that she feels like she is beginning to get a bit swollen. She denies contractions Vital Signs Date Time Temp Pulse Resp B/P (MAP) Pulse Ox O2 Delivery O2 Flow Rate FiO2 01/26/19 04:35 36.5 80 18 130/69 (89) Room Air 01/26/19 00:18 35.4 84 18 155/89 (111) 99 Room Air 01/25/19 20:06 36.3 89 18 152/85 (107) 97 Room Air 01/25/19 16:55 37.0 86 18 153/86 (108) Room Air 01/25/19 16:40 94 18 153/84 (107) Room Air 01/25/19 16:25 90 18 148/81 (103) Room Air 01/25/19 16:10 97 18 146/81 (102) Room Air 01/25/19 15:55 87 18 147/83 (104) Room Air 01/25/19 15:25 88 18 147/79 (101) Room Air 01/25/19 15:10 89 18 148/80 (102) Room Air 01/25/19 14:55 93 18 149/81 (103) Room Air 01/25/19 14:40 91 18 148/83 (104) Room Air 01/25/19 14:20 Room Air 01/25/19 14:20 36.2 83 18 98 Room Air 01/25/19 14:19 36.2 83 18 159/84 (109) 98 Room Air I & O 01/26/19 07:00 Intake Total 1000 ml Balance 1000 ml Blood pressures continued to be in the mild preeclampsia range consistently in the 140s and 150s systolically Abdomen is benign. Fundus is nontender Extremities show no clubbing cyanosis. There is some pretibial pitting edema. DTRs are 3+ to 4 globally Assessment and plan this is hospital day 2 with the patient now at 35-2/7 weeks' gestation with overt preeclampsia and a history of severe preeclampsia. We will continue minimizing stimulation and activity to suppress the blood pressure, twice daily NSTs for assessment of well-being, we'll repeat her lab work on Monday and when necessary if the change in condition. Patient is stable with mild preeclampsia at this point. Condition is guarded at this patient does have a history of rapid progression to severe preeclampsia January 27, 2019 This patient is without complaint. She denies chest pain, denies shortness breath, denies nausea vomiting, and denies headache. She denies rupture membranes or bleeding. She does feel baby moving. She has rare contractions. She is testing her own blood sugars and watching her gestational diabetes diet and her blood sugars per her report have been running generally less than 120 at 2 hours postprandial. She did have several elevated blood sugars while she was receiving an IV fluids containing D5 that has been changed and her blood sugars have returned to their baseline on her metformin Vital Signs Date Time Temp Pulse Resp B/P (MAP) Pulse Ox O2 Delivery O2 Flow Rate FiO2 01/27/19 15:26 36.9 86 18 140/72 (94) 97 Room Air 01/27/19 11:15 37.2 92 18 153/78 (103) 97 Room Air 01/27/19 07:50 85 18 148/82 (104) Room Air 01/27/19 07:33 36.7 82 18 165/90 (115) 98 Room Air 01/27/19 07:33 98 Room Air 01/27/19 02:40 74 18 140/75 (96) 99 Room Air 01/26/19 22:40 36.6 83 18 157/77 (103) 99 Room Air 01/26/19 21:01 93 18 I & O 01/27/19 07:00 Intake Total 1400 ml Balance 1400 ml Blood pressures are persistently elevated however they seem to be hovering just below the severe preeclampsia range Patient's abdomen is gravid soft nontender Extremities show no clubbing or cyanosis. There is no Homans sign. Her DTRs are brisk at 3+ to 4 over 4 Pelvic exam is deferred NSTs when performed is reactive Assessment and plan 35 weeks and 3 days on hospital day 3 with persistently elevated blood pressures flirting with severe preeclampsia -patient does understand that when blood pressures are persistently in the severe preeclampsia range that it will be necessary to proceed with delivery. We will continue close blood pressure monitoring and repeat lab work tomorrow January 28, 2019 Patient is without complaint. She is essentially unchanged from yesterday. Vital Signs Date Time Temp Pulse Resp B/P (MAP) Pulse Ox O2 Delivery O2 Flow Rate FiO2 01/28/19 04:00 36.6 18 143/79 (100) 98 Room Air 01/28/19 00:10 75 18 139/70 (93) Room Air 01/27/19 20:05 85 18 158/83 (108) 01/27/19 19:55 83 18 170/82 (111) 01/27/19 15:26 36.9 86 18 140/72 (94) 97 Room Air 01/27/19 11:15 37.2 92 18 153/78 (103) 97 Room Air Her blood pressures remained labile consistently less than 160/100 but episodically exceeding that with a high being 170/82 last evening. Lab work is pending The abdomen is benign Extremities show no clubbing or cyanosis. There is some pretibial pitting edema Assessment and plan hospital day 4 in a patient with preeclampsia bordering on severe preeclampsia. Plan is for delivery when she shows progression of preecla mpsia to persistent severe preeclampsia. Is doubtful that she will attain 37 weeks but if she should she would be delivered at that time January 29, 2019 This patient is without complaint. She denies headache, denies shortness of breath, contractions, denies nausea vomiting. Vital Signs Date Time Temp Pulse Resp B/P (MAP) Pulse Ox O2 Delivery O2 Flow Rate FiO2 01/29/19 06:07 18 01/29/19 04:30 36.0 81 16 134/71 (92) 98 Room Air 01/28/19 23:57 36.6 81 16 139/73 (95) 98 Room Air 01/28/19 21:14 36.2 82 18 160/82 (108) 97 Room Air 01/28/19 20:57 Room Air 01/28/19 15:45 36.6 18 155/86 (109) Room Air 01/28/19 10:20 93 18 01/28/19 10:00 Room Air 01/28/19 09:50 36.6 20 154/78 (103) Room Air I & O 01/29/19 07:00 Intake Total 700 ml Balance 700 ml Blood pressure is relatively stable episodically elevated acceptable with the patient at rest Laboratory Tests Test 01/28/19 10:20 Range/Units White Blood Count 6.8 4.3-11.0 10^3/uL Red Blood Count 4.06 L 4.35-5.85 10^6/uL Hemoglobin 10.6 L 11.5-16.0 G/DL Hematocrit 34 L 35-52 % Mean Corpuscular Volume 83 80-99 FL Mean Corpuscular Hemoglobin 26 25-34 PG Mean Corpuscular Hemoglobin Concent 32 32-36 G/DL Red Cell Distribution Width 16.2 H 10.0-14.5 % Platelet Count 292 130-400 10^3/uL Mean Platelet Volume 9.4 7.4-10.4 FL Neutrophils (%) (Auto) 56 42-75 % Lymphocytes (%) (Auto) 30 12-44 % Monocytes (%) (Auto) 13 H 0-12 % Eosinophils (%) (Auto) 0 0-10 % Basophils (%) (Auto) 0 0-10 % Neutrophils # (Auto) 3.9 1.8-7.8 X 10^3 Lymphocytes # (Auto) 2.1 1.0-4.0 X 10^3 Monocytes # (Auto) 0.9 0.0-1.0 X 10^3 Eosinophils # (Auto) 0.0 0.0-0.3 10^3/uL Basophils # (Auto) 0.0 0.0-0.1 10^3/uL Sodium Level 136 135-145 MMOL/L Potassium Level 3.8 3.6-5.0 MMOL/L Chloride Level 107 98-107 MMOL/L Carbon Dioxide Level 20 L 21-32 MMOL/L Anion Gap 9 5-14 MMOL/L Blood Urea Nitrogen 8 7-18 MG/DL Creatinine 0.58 L 0.60-1.30 MG/DL Estimat Glomerular Filtration Rate > 60 BUN/Creatinine Ratio 14 Glucose Level 81 70-105 MG/DL Uric Acid 5.0 2.6-7.2 MG/DL Calcium Level 8.6 8.5-10.1 MG/DL Corrected Calcium 9.1 8.5-10.1 MG/DL Total Bilirubin 0.7 0.1-1.0 MG/DL Aspartate Amino Transf (AST/SGOT) 11 5-34 U/L Alanine Aminotransferase (ALT/SGPT) 9 0-55 U/L Alkaline Phosphatase 87 40-136 U/L Lactate Dehydrogenase 134 125-220 U/L Total Protein 6.8 6.4-8.2 GM/DL Albumin 3.4 3.2-4.5 GM/DL Patient's lab work is stable The abdomen is gravid and nontender Extremities show no clubbing or cyanosis Assessment and plan hospital day number 5 and currently 35+ weeks gestation preeclampsia bordering on severe preeclampsia. His blood pressures do elevated with activity she remains essentially at bed rest. pLan is for delivery for severe preeclampsia or at 37 weeks gestation. Patient understands that limiting activity likely will slow the progression to severe preeclampsia could occur at any time. We are alert to the increased risk for progression to eclampsia as well January 30, 2019 Patient has no specific complaints. She denies rupture membranes or bleeding. She does feel baby moving. He has had a mild headache. Vital Signs Date Time Temp Pulse Resp B/P (MAP) Pulse Ox O2 Delivery O2 Flow Rate FiO2 01/30/19 08:30 36.6 92 18 136/77 (96) 96 Room Air 01/30/19 04:10 36.5 78 18 146/85 (105) 96 Room Air 01/30/19 00:14 36.4 88 18 156/88 (110) 96 Room Air 01/29/19 19:50 36.6 87 18 154/95 (114) 97 Room Air 01/29/19 15:48 36.4 90 18 152/83 (106) 98 Room Air 01/29/19 11:47 36.8 90 18 142/76 (98) 97 Room Air 01/29/19 11:47 90 18 142/76 Blood pressures remained elevated in the high range for preeclampsia Abdomen is gravid soft nontender Extremities show no clubbing or cyanosis. There is no Homans sign. DTRs are elevated 3+/4 over 4 Assessment and plan hospital day number 6 at 35-6/7 weeks' gestation with preeclampsia bordering on severe preeclampsia plan is to continue blood pressure and monitoring with delivery For severe preeclampsia or at 37 weeks gestation January 31, 2019 Patient is without complaint. Her headache has resolved. Vital Signs Date Time Temp Pulse Resp B/P (MAP) Pulse Ox O2 Delivery O2 Flow Rate FiO2 01/31/19 05:00 36.3 67 16 127/72 (90) 98 Room Air 01/31/19 01:31 80 18 148/85 01/31/19 00:35 37.3 80 18 148/85 (106) 97 Room Air 01/30/19 21:05 98 Room Air 01/30/19 20:56 36.9 89 20 156/95 (115) 99 Room Air 01/30/19 16:28 36.5 91 18 143/84 (103) 98 Room Air 01/30/19 12:35 36.5 82 18 151/79 (103) 99 Room Air I & O 01/31/19 07:00 Intake Total 1840 ml Output Total 1500 ml Balance 340 ml Blood pressures are persistently in the 150s over 80s and 90s The abdomen is benign. The uterus is nontender. Extremities show no clubbing or cyanosis. There is no Homans sign. Assessment and plan hospital day 7 now at 36 weeks gestation. Patient at bed rest has maintained blood pressures and a subcutaneous severe preeclampsia range -the blood pressures do elevate significantly with - patient understands that limited activity will likely prolong the . Plan is to continue current surveillance and effect delivery at 37 weeks or with progression to severe preeclampsia EDINSON VASQUEZ MD Jan 31, 2019 08:58
[2019-01-31] MEDS: LACTATED RINGERS 1,000 ML IV SCH (16:58)
[2019-01-31] MEDS: hydrOXYzine (VISTARIL/ATARAX) 25 MG capsule/tablet PO PRN (21:40)
[2019-02-01] VITALS (9 sets, daily range): BP systolic 135–160; BP diastolic 72–92
[2019-02-01] MEDS: CATHETER FLUSH 10 ML SYR IV SCH ×7 (00:34→23:55)
[2019-02-01] MEDS: NIFEdipine ER 30 MG (PROCARDIA XL) TAB PO SCH (06:40)
[2019-02-01] MEDS: metFORMIN 500 MG (GLUCOPHAGE) TAB PO SCH ×2 (06:41→17:26)
--- NOTE | 2019-02-01 07:47 | Progress Note ---
Standard Progress Note Progress Notes/Assess & Plan Date Seen by a Provider: Feb 01, 2019 Time Seen by a Provider: 07:45 Progress/Assessment & Plan This patient complains of a mild headache. She denies rupture membranes or bleeding she reports that she feels like she is beginning to get a bit swollen. She denies contractions Vital Signs Date Time Temp Pulse Resp B/P (MAP) Pulse Ox O2 Delivery O2 Flow Rate FiO2 01/26/19 04:35 36.5 80 18 130/69 (89) Room Air 01/26/19 00:18 35.4 84 18 155/89 (111) 99 Room Air 01/25/19 20:06 36.3 89 18 152/85 (107) 97 Room Air 01/25/19 16:55 37.0 86 18 153/86 (108) Room Air 01/25/19 16:40 94 18 153/84 (107) Room Air 01/25/19 16:25 90 18 148/81 (103) Room Air 01/25/19 16:10 97 18 146/81 (102) Room Air 01/25/19 15:55 87 18 147/83 (104) Room Air 01/25/19 15:25 88 18 147/79 (101) Room Air 01/25/19 15:10 89 18 148/80 (102) Room Air 01/25/19 14:55 93 18 149/81 (103) Room Air 01/25/19 14:40 91 18 148/83 (104) Room Air 01/25/19 14:20 Room Air 01/25/19 14:20 36.2 83 18 98 Room Air 01/25/19 14:19 36.2 83 18 159/84 (109) 98 Room Air I & O 01/26/19 07:00 Intake Total 1000 ml Balance 1000 ml Blood pressures continued to be in the mild preeclampsia range consistently in the 140s and 150s systolically Abdomen is benign. Fundus is nontender Extremities show no clubbing cyanosis. There is some pretibial pitting edema. DTRs are 3+ to 4 globally Assessment and plan this is hospital day 2 with the patient now at 35-2/7 weeks' gestation with overt preeclampsia and a history of severe preeclampsia. We will continue minimizing stimulation and activity to suppress the blood pressure, twice daily NSTs for assessment of well-being, we'll repeat her lab work on Monday and when necessary if the change in condition. Patient is stable with mild preeclampsia at this point. Condition is guarded at this patient does have a history of rapid progression to severe preeclampsia January 27, 2019 This patient is without complaint. She denies chest pain, denies shortness breath, denies nausea vomiting, and denies headache. She denies rupture membranes or bleeding. She does feel baby moving. She has rare contractions. She is testing her own blood sugars and watching her gestational diabetes diet and her blood sugars per her report have been running generally less than 120 at 2 hours postprandial. She did have several elevated blood sugars while she was receiving an IV fluids containing D5 that has been changed and her blood sugars have returned to their baseline on her metformin Vital Signs Date Time Temp Pulse Resp B/P (MAP) Pulse Ox O2 Delivery O2 Flow Rate FiO2 01/27/19 15:26 36.9 86 18 140/72 (94) 97 Room Air 01/27/19 11:15 37.2 92 18 153/78 (103) 97 Room Air 01/27/19 07:50 85 18 148/82 (104) Room Air 01/27/19 07:33 36.7 82 18 165/90 (115) 98 Room Air 01/27/19 07:33 98 Room Air 01/27/19 02:40 74 18 140/75 (96) 99 Room Air 01/26/19 22:40 36.6 83 18 157/77 (103) 99 Room Air 01/26/19 21:01 93 18 I & O 01/27/19 07:00 Intake Total 1400 ml Balance 1400 ml Blood pressures are persistently elevated however they seem to be hovering just below the severe preeclampsia range Patient's abdomen is gravid soft nontender Extremities show no clubbing or cyanosis. There is no Homans sign. Her DTRs are brisk at 3+ to 4 over 4 Pelvic exam is deferred NSTs when performed is reactive Assessment and plan 35 weeks and 3 days on hospital day 3 with persistently elevated blood pressures flirting with severe preeclampsia -patient does understand that when blood pressures are persistently in the severe preeclampsia range that it will be necessary to proceed with delivery. We will continue close blood pressure monitoring and repeat lab work tomorrow January 28, 2019 Patient is without complaint. She is essentially unchanged from yesterday. Vital Signs Date Time Temp Pulse Resp B/P (MAP) Pulse Ox O2 Delivery O2 Flow Rate FiO2 01/28/19 04:00 36.6 18 143/79 (100) 98 Room Air 01/28/19 00:10 75 18 139/70 (93) Room Air 01/27/19 20:05 85 18 158/83 (108) 01/27/19 19:55 83 18 170/82 (111) 01/27/19 15:26 36.9 86 18 140/72 (94) 97 Room Air 01/27/19 11:15 37.2 92 18 153/78 (103) 97 Room Air Her blood pressures remained labile consistently less than 160/100 but episodically exceeding that with a high being 170/82 last evening. Lab work is pending The abdomen is benign Extremities show no clubbing or cyanosis. There is some pretibial pitting edema Assessment and plan hospital day 4 in a patient with preeclampsia bordering on severe preeclampsia. Plan is for delivery when she shows progression of preecla mpsia to persistent severe preeclampsia. Is doubtful that she will attain 37 weeks but if she should she would be delivered at that time January 29, 2019 This patient is without complaint. She denies headache, denies shortness of breath, contractions, denies nausea vomiting. Vital Signs Date Time Temp Pulse Resp B/P (MAP) Pulse Ox O2 Delivery O2 Flow Rate FiO2 01/29/19 06:07 18 01/29/19 04:30 36.0 81 16 134/71 (92) 98 Room Air 01/28/19 23:57 36.6 81 16 139/73 (95) 98 Room Air 01/28/19 21:14 36.2 82 18 160/82 (108) 97 Room Air 01/28/19 20:57 Room Air 01/28/19 15:45 36.6 18 155/86 (109) Room Air 01/28/19 10:20 93 18 01/28/19 10:00 Room Air 01/28/19 09:50 36.6 20 154/78 (103) Room Air I & O 01/29/19 07:00 Intake Total 700 ml Balance 700 ml Blood pressure is relatively stable episodically elevated acceptable with the patient at rest Laboratory Tests Test 01/28/19 10:20 Range/Units White Blood Count 6.8 4.3-11.0 10^3/uL Red Blood Count 4.06 L 4.35-5.85 10^6/uL Hemoglobin 10.6 L 11.5-16.0 G/DL Hematocrit 34 L 35-52 % Mean Corpuscular Volume 83 80-99 FL Mean Corpuscular Hemoglobin 26 25-34 PG Mean Corpuscular Hemoglobin Concent 32 32-36 G/DL Red Cell Distribution Width 16.2 H 10.0-14.5 % Platelet Count 292 130-400 10^3/uL Mean Platelet Volume 9.4 7.4-10.4 FL Neutrophils (%) (Auto) 56 42-75 % Lymphocytes (%) (Auto) 30 12-44 % Monocytes (%) (Auto) 13 H 0-12 % Eosinophils (%) (Auto) 0 0-10 % Basophils (%) (Auto) 0 0-10 % Neutrophils # (Auto) 3.9 1.8-7.8 X 10^3 Lymphocytes # (Auto) 2.1 1.0-4.0 X 10^3 Monocytes # (Auto) 0.9 0.0-1.0 X 10^3 Eosinophils # (Auto) 0.0 0.0-0.3 10^3/uL Basophils # (Auto) 0.0 0.0-0.1 10^3/uL Sodium Level 136 135-145 MMOL/L Potassium Level 3.8 3.6-5.0 MMOL/L Chloride Level 107 98-107 MMOL/L Carbon Dioxide Level 20 L 21-32 MMOL/L Anion Gap 9 5-14 MMOL/L Blood Urea Nitrogen 8 7-18 MG/DL Creatinine 0.58 L 0.60-1.30 MG/DL Estimat Glomerular Filtration Rate > 60 BUN/Creatinine Ratio 14 Glucose Level 81 70-105 MG/DL Uric Acid 5.0 2.6-7.2 MG/DL Calcium Level 8.6 8.5-10.1 MG/DL Corrected Calcium 9.1 8.5-10.1 MG/DL Total Bilirubin 0.7 0.1-1.0 MG/DL Aspartate Amino Transf (AST/SGOT) 11 5-34 U/L Alanine Aminotransferase (ALT/SGPT) 9 0-55 U/L Alkaline Phosphatase 87 40-136 U/L Lactate Dehydrogenase 134 125-220 U/L Total Protein 6.8 6.4-8.2 GM/DL Albumin 3.4 3.2-4.5 GM/DL Patient's lab work is stable The abdomen is gravid and nontender Extremities show no clubbing or cyanosis Assessment and plan hospital day number 5 and currently 35+ weeks gestation preeclampsia bordering on severe preeclampsia. His blood pressures do elevated with activity she remains essentially at bed rest. pLan is for delivery for severe preeclampsia or at 37 weeks gestation. Patient understands that limiting activity likely will slow the progression to severe preeclampsia could occur at any time. We are alert to the increased risk for progression to eclampsia as well January 30, 2019 Patient has no specific complaints. She denies rupture membranes or bleeding. She does feel baby moving. He has had a mild headache. Vital Signs Date Time Temp Pulse Resp B/P (MAP) Pulse Ox O2 Delivery O2 Flow Rate FiO2 01/30/19 08:30 36.6 92 18 136/77 (96) 96 Room Air 01/30/19 04:10 36.5 78 18 146/85 (105) 96 Room Air 01/30/19 00:14 36.4 88 18 156/88 (110) 96 Room Air 01/29/19 19:50 36.6 87 18 154/95 (114) 97 Room Air 01/29/19 15:48 36.4 90 18 152/83 (106) 98 Room Air 01/29/19 11:47 36.8 90 18 142/76 (98) 97 Room Air 01/29/19 11:47 90 18 142/76 Blood pressures remained elevated in the high range for preeclampsia Abdomen is gravid soft nontender Extremities show no clubbing or cyanosis. There is no Homans sign. DTRs are elevated 3+/4 over 4 Assessment and plan hospital day number 6 at 35-6/7 weeks' gestation with preeclampsia bordering on severe preeclampsia plan is to continue blood pressure and monitoring with delivery For severe preeclampsia or at 37 weeks gestation January 31, 2019 Patient is without complaint. Her headache has resolved. Vital Signs Date Time Temp Pulse Resp B/P (MAP) Pulse Ox O2 Delivery O2 Flow Rate FiO2 01/31/19 05:00 36.3 67 16 127/72 (90) 98 Room Air 01/31/19 01:31 80 18 148/85 01/31/19 00:35 37.3 80 18 148/85 (106) 97 Room Air 01/30/19 21:05 98 Room Air 01/30/19 20:56 36.9 89 20 156/95 (115) 99 Room Air 01/30/19 16:28 36.5 91 18 143/84 (103) 98 Room Air 01/30/19 12:35 36.5 82 18 151/79 (103) 99 Room Air I & O 01/31/19 07:00 Intake Total 1840 ml Output Total 1500 ml Balance 340 ml Blood pressures are persistently in the 150s over 80s and 90s The abdomen is benign. The uterus is nontender. Extremities show no clubbing or cyanosis. There is no Homans sign. Assessment and plan hospital day 7 now at 36 weeks gestation. Patient at bed rest has maintained blood pressures and a subcutaneous severe preeclampsia range -the blood pressures do elevate significantly with - patient understands that limited activity will likely prolong the . Plan is to continue current surveillance and effect delivery at 37 weeks or with progression to severe preeclampsia February 01, 2019 Patient remains without complaint. Vital Signs Date Time Temp Pulse Resp B/P (MAP) Pulse Ox O2 Delivery O2 Flow Rate FiO2 02/01/19 04:00 36.2 75 18 137/72 (93) Room Air 02/01/19 00:00 36.0 83 18 157/80 (105) Room Air 01/31/19 20:43 86 18 143/80 01/31/19 20:43 98 Room Air 01/31/19 20:00 36.9 86 18 143/80 (101) 98 Room Air 01/31/19 17:30 36.8 84 18 131/81 (98) 99 Room Air 01/31/19 17:00 155/87 (109) 01/31/19 13:00 36.8 97 18 119/71 (87) 98 Room Air 01/31/19 08:54 85 18 136/82 01/31/19 08:35 36.8 85 18 136/82 (100) 98 Room Air 01/31/19 08:00 98 Room Air I & O 02/01/19 07:00 Intake Total 3740 ml Output Total 3950 ml Balance -210 ml Blood pressures are elevated but remain stable in the mild preeclampsia range patient is afebrile. The abdomen is gravid soft nontender nondistended Extremities show no clubbing or cyanosis there is no Homans sign Assessment and plan hospital day 8 now 36-1/7 weeks gestation. We will continue our current plan and management EDINSON VASQUEZ MD Feb 01, 2019 07:47
[2019-02-01] MEDS: ACETAMINOPHEN 500 MG TAB (TYLENOL) PO PRN ×2 (16:34→21:52)
[2019-02-01] MEDS: LACTATED RINGERS 1,000 ML IV SCH ×2 (16:39→23:55)
--- NOTE | 2019-02-01 16:40 | Diagnostic Imaging Report ---
INDICATION: Check growth. TECHNIQUE: Multiple real-time grayscale images were obtained over the gravid uterus. COMPARISON: There are no prior studies available for comparison. FINDINGS: There is a single live fetus in cephalic presentation. heart motion was noted and a rate of 156 BPM was recorded. There was no abnormality identified. The biophysical profile score is 8 out of 8 and within normal limits. The placenta is posterior and there is no previa. The amniotic fluid volume is within normal limits. The growth parameters are fairly uniform with the exception of the femur length. The femur length lags behind the other two measurements by approximately two weeks. IMPRESSION: 1. There is a single live fetus approximately 38 weeks gestation +/- 3.5 weeks. The EDC is 02/15/2019. 2. There were no abnormalities identified. 3. The biophysical profile score is 8 out of 8 and within normal limits. Dictated by: Dictated on workstation # [id number]
[2019-02-01] MEDS: hydrOXYzine (VISTARIL/ATARAX) 25 MG capsule/tablet PO PRN (21:52)
[2019-02-02 03:27] VITALS: BP 141/69
[2019-02-02] MEDS: NIFEdipine ER 30 MG (PROCARDIA XL) TAB PO SCH (05:53)
[2019-02-02] MEDS: metFORMIN 500 MG (GLUCOPHAGE) TAB PO SCH ×2 (05:53→16:10)
[2019-02-02 06:41] LABS: BASOPHILS % (AUTO) 0 % (0-10); EOSINOPHILS % (AUTO) 1 % (0-10); HEMATOCRIT 35 % (35-52); HEMOGLOBIN 11.3 G/DL (11.5-16.0); LYMPHOCYTES % (AUTO) 30 % (12-44); MEAN CORPUSCULAR HEMOGLOBIN 27 PG (25-34); MEAN CORPUSCULAR HGB CONC 33 G/DL (32-36); MEAN CORPUSCULAR VOLUME 82 FL (80-99); MEAN PLATELET VOLUME 9.9 FL (7.4-10.4); MONOCYTES # (AUTO) 0.5 X 10^3 (0.0-1.0); MONOCYTES % (AUTO) 8 % (0-12); NEUTROPHILS # (AUTO) 4.2 X 10^3 (1.8-7.8); NEUTROPHILS % (AUTO) 62 % (42-75); PLATELET COUNT 257 10^3/uL (130-400); RED CELL DISTRIBUTION WIDTH 15.6 % (10.0-14.5); WHITE BLOOD COUNT 6.7 10^3/uL (4.3-11.0)
[2019-02-02 07:12] LABS: ALANINE AMINOTRANSFERASE 6 U/L (0-55); ALBUMIN 3.2 GM/DL (3.2-4.5); ALKALINE PHOSPHATASE 101 U/L (40-136); BILIRUBIN,TOTAL 0.7 MG/DL (0.1-1.0); BUN/CREATININE RATIO 10; CARBON DIOXIDE 17 MMOL/L (21-32); CHLORIDE 107 MMOL/L (98-107); CREATININE SERUM 0.52 MG/DL (0.60-1.30); GFR ESTIMATED > 60; GLUCOSE 89 MG/DL (70-105); POTASSIUM 3.9 MMOL/L (3.6-5.0); SODIUM 135 MMOL/L (135-145); TOTAL PROTEIN 6.8 GM/DL (6.4-8.2); URIC ACID 4.6 MG/DL (2.6-7.2)
[2019-02-02 08:00] VITALS: BP 141/91
--- NOTE | 2019-02-02 09:15 | Progress Note ---
Standard Progress Note Progress Notes/Assess & Plan Date Seen by a Provider: Feb 02, 2019 Time Seen by a Provider: 09:11 Progress/Assessment & Plan This patient complains of a mild headache. She denies rupture membranes or bleeding she reports that she feels like she is beginning to get a bit swollen. She denies contractions Vital Signs Date Time Temp Pulse Resp B/P (MAP) Pulse Ox O2 Delivery O2 Flow Rate FiO2 01/26/19 04:35 36.5 80 18 130/69 (89) Room Air 01/26/19 00:18 35.4 84 18 155/89 (111) 99 Room Air 01/25/19 20:06 36.3 89 18 152/85 (107) 97 Room Air 01/25/19 16:55 37.0 86 18 153/86 (108) Room Air 01/25/19 16:40 94 18 153/84 (107) Room Air 01/25/19 16:25 90 18 148/81 (103) Room Air 01/25/19 16:10 97 18 146/81 (102) Room Air 01/25/19 15:55 87 18 147/83 (104) Room Air 01/25/19 15:25 88 18 147/79 (101) Room Air 01/25/19 15:10 89 18 148/80 (102) Room Air 01/25/19 14:55 93 18 149/81 (103) Room Air 01/25/19 14:40 91 18 148/83 (104) Room Air 01/25/19 14:20 Room Air 01/25/19 14:20 36.2 83 18 98 Room Air 01/25/19 14:19 36.2 83 18 159/84 (109) 98 Room Air I & O 01/26/19 07:00 Intake Total 1000 ml Balance 1000 ml Blood pressures continued to be in the mild preeclampsia range consistently in the 140s and 150s systolically Abdomen is benign. Fundus is nontender Extremities show no clubbing cyanosis. There is some pretibial pitting edema. DTRs are 3+ to 4 globally Assessment and plan this is hospital day 2 with the patient now at 35-2/7 weeks' gestation with overt preeclampsia and a history of severe preeclampsia. We will continue minimizing stimulation and activity to suppress the blood pressure, twice daily NSTs for assessment of well-being, we'll repeat her lab work on Monday and when necessary if the change in condition. Patient is stable with mild preeclampsia at this point. Condition is guarded at this patient does have a history of rapid progression to severe preeclampsia January 27, 2019 This patient is without complaint. She denies chest pain, denies shortness breath, denies nausea vomiting, and denies headache. She denies rupture membranes or bleeding. She does feel baby moving. She has rare contractions. She is testing her own blood sugars and watching her gestational diabetes diet and her blood sugars per her report have been running generally less than 120 at 2 hours postprandial. She did have several elevated blood sugars while she was receiving an IV fluids containing D5 that has been changed and her blood sugars have returned to their baseline on her metformin Vital Signs Date Time Temp Pulse Resp B/P (MAP) Pulse Ox O2 Delivery O2 Flow Rate FiO2 01/27/19 15:26 36.9 86 18 140/72 (94) 97 Room Air 01/27/19 11:15 37.2 92 18 153/78 (103) 97 Room Air 01/27/19 07:50 85 18 148/82 (104) Room Air 01/27/19 07:33 36.7 82 18 165/90 (115) 98 Room Air 01/27/19 07:33 98 Room Air 01/27/19 02:40 74 18 140/75 (96) 99 Room Air 01/26/19 22:40 36.6 83 18 157/77 (103) 99 Room Air 01/26/19 21:01 93 18 I & O 01/27/19 07:00 Intake Total 1400 ml Balance 1400 ml Blood pressures are persistently elevated however they seem to be hovering just below the severe preeclampsia range Patient's abdomen is gravid soft nontender Extremities show no clubbing or cyanosis. There is no Homans sign. Her DTRs are brisk at 3+ to 4 over 4 Pelvic exam is deferred NSTs when performed is reactive Assessment and plan 35 weeks and 3 days on hospital day 3 with persistently elevated blood pressures flirting with severe preeclampsia -patient does understand that when blood pressures are persistently in the severe preeclampsia range that it will be necessary to proceed with delivery. We will continue close blood pressure monitoring and repeat lab work tomorrow January 28, 2019 Patient is without complaint. She is essentially unchanged from yesterday. Vital Signs Date Time Temp Pulse Resp B/P (MAP) Pulse Ox O2 Delivery O2 Flow Rate FiO2 01/28/19 04:00 36.6 18 143/79 (100) 98 Room Air 01/28/19 00:10 75 18 139/70 (93) Room Air 01/27/19 20:05 85 18 158/83 (108) 01/27/19 19:55 83 18 170/82 (111) 01/27/19 15:26 36.9 86 18 140/72 (94) 97 Room Air 01/27/19 11:15 37.2 92 18 153/78 (103) 97 Room Air Her blood pressures remained labile consistently less than 160/100 but episodically exceeding that with a high being 170/82 last evening. Lab work is pending The abdomen is benign Extremities show no clubbing or cyanosis. There is some pretibial pitting edema Assessment and plan hospital day 4 in a patient with preeclampsia bordering on severe preeclampsia. Plan is for delivery when she shows progression of preecla mpsia to persistent severe preeclampsia. Is doubtful that she will attain 37 weeks but if she should she would be delivered at that time January 29, 2019 This patient is without complaint. She denies headache, denies shortness of breath, contractions, denies nausea vomiting. Vital Signs Date Time Temp Pulse Resp B/P (MAP) Pulse Ox O2 Delivery O2 Flow Rate FiO2 01/29/19 06:07 18 01/29/19 04:30 36.0 81 16 134/71 (92) 98 Room Air 01/28/19 23:57 36.6 81 16 139/73 (95) 98 Room Air 01/28/19 21:14 36.2 82 18 160/82 (108) 97 Room Air 01/28/19 20:57 Room Air 01/28/19 15:45 36.6 18 155/86 (109) Room Air 01/28/19 10:20 93 18 01/28/19 10:00 Room Air 01/28/19 09:50 36.6 20 154/78 (103) Room Air I & O 01/29/19 07:00 Intake Total 700 ml Balance 700 ml Blood pressure is relatively stable episodically elevated acceptable with the patient at rest Laboratory Tests Test 01/28/19 10:20 Range/Units White Blood Count 6.8 4.3-11.0 10^3/uL Red Blood Count 4.06 L 4.35-5.85 10^6/uL Hemoglobin 10.6 L 11.5-16.0 G/DL Hematocrit 34 L 35-52 % Mean Corpuscular Volume 83 80-99 FL Mean Corpuscular Hemoglobin 26 25-34 PG Mean Corpuscular Hemoglobin Concent 32 32-36 G/DL Red Cell Distribution Width 16.2 H 10.0-14.5 % Platelet Count 292 130-400 10^3/uL Mean Platelet Volume 9.4 7.4-10.4 FL Neutrophils (%) (Auto) 56 42-75 % Lymphocytes (%) (Auto) 30 12-44 % Monocytes (%) (Auto) 13 H 0-12 % Eosinophils (%) (Auto) 0 0-10 % Basophils (%) (Auto) 0 0-10 % Neutrophils # (Auto) 3.9 1.8-7.8 X 10^3 Lymphocytes # (Auto) 2.1 1.0-4.0 X 10^3 Monocytes # (Auto) 0.9 0.0-1.0 X 10^3 Eosinophils # (Auto) 0.0 0.0-0.3 10^3/uL Basophils # (Auto) 0.0 0.0-0.1 10^3/uL Sodium Level 136 135-145 MMOL/L Potassium Level 3.8 3.6-5.0 MMOL/L Chloride Level 107 98-107 MMOL/L Carbon Dioxide Level 20 L 21-32 MMOL/L Anion Gap 9 5-14 MMOL/L Blood Urea Nitrogen 8 7-18 MG/DL Creatinine 0.58 L 0.60-1.30 MG/DL Estimat Glomerular Filtration Rate > 60 BUN/Creatinine Ratio 14 Glucose Level 81 70-105 MG/DL Uric Acid 5.0 2.6-7.2 MG/DL Calcium Level 8.6 8.5-10.1 MG/DL Corrected Calcium 9.1 8.5-10.1 MG/DL Total Bilirubin 0.7 0.1-1.0 MG/DL Aspartate Amino Transf (AST/SGOT) 11 5-34 U/L Alanine Aminotransferase (ALT/SGPT) 9 0-55 U/L Alkaline Phosphatase 87 40-136 U/L Lactate Dehydrogenase 134 125-220 U/L Total Protein 6.8 6.4-8.2 GM/DL Albumin 3.4 3.2-4.5 GM/DL Patient's lab work is stable The abdomen is gravid and nontender Extremities show no clubbing or cyanosis Assessment and plan hospital day number 5 and currently 35+ weeks gestation preeclampsia bordering on severe preeclampsia. His blood pressures do elevated with activity she remains essentially at bed rest. pLan is for delivery for severe preeclampsia or at 37 weeks gestation. Patient understands that limiting activity likely will slow the progression to severe preeclampsia could occur at any time. We are alert to the increased risk for progression to eclampsia as well January 30, 2019 Patient has no specific complaints. She denies rupture membranes or bleeding. She does feel baby moving. He has had a mild headache. Vital Signs Date Time Temp Pulse Resp B/P (MAP) Pulse Ox O2 Delivery O2 Flow Rate FiO2 01/30/19 08:30 36.6 92 18 136/77 (96) 96 Room Air 01/30/19 04:10 36.5 78 18 146/85 (105) 96 Room Air 01/30/19 00:14 36.4 88 18 156/88 (110) 96 Room Air 01/29/19 19:50 36.6 87 18 154/95 (114) 97 Room Air 01/29/19 15:48 36.4 90 18 152/83 (106) 98 Room Air 01/29/19 11:47 36.8 90 18 142/76 (98) 97 Room Air 01/29/19 11:47 90 18 142/76 Blood pressures remained elevated in the high range for preeclampsia Abdomen is gravid soft nontender Extremities show no clubbing or cyanosis. There is no Homans sign. DTRs are elevated 3+/4 over 4 Assessment and plan hospital day number 6 at 35-6/7 weeks' gestation with preeclampsia bordering on severe preeclampsia plan is to continue blood pressure and monitoring with delivery For severe preeclampsia or at 37 weeks gestation January 31, 2019 Patient is without complaint. Her headache has resolved. Vital Signs Date Time Temp Pulse Resp B/P (MAP) Pulse Ox O2 Delivery O2 Flow Rate FiO2 01/31/19 05:00 36.3 67 16 127/72 (90) 98 Room Air 01/31/19 01:31 80 18 148/85 01/31/19 00:35 37.3 80 18 148/85 (106) 97 Room Air 01/30/19 21:05 98 Room Air 01/30/19 20:56 36.9 89 20 156/95 (115) 99 Room Air 01/30/19 16:28 36.5 91 18 143/84 (103) 98 Room Air 01/30/19 12:35 36.5 82 18 151/79 (103) 99 Room Air I & O 01/31/19 07:00 Intake Total 1840 ml Output Total 1500 ml Balance 340 ml Blood pressures are persistently in the 150s over 80s and 90s The abdomen is benign. The uterus is nontender. Extremities show no clubbing or cyanosis. There is no Homans sign. Assessment and plan hospital day 7 now at 36 weeks gestation. Patient at bed rest has maintained blood pressures and a subcutaneous severe preeclampsia range -the blood pressures do elevate significantly with - patient understands that limited activity will likely prolong the . Plan is to continue current surveillance and effect delivery at 37 weeks or with progression to severe preeclampsia February 01, 2019 Patient remains without complaint. Vital Signs Date Time Temp Pulse Resp B/P (MAP) Pulse Ox O2 Delivery O2 Flow Rate FiO2 02/01/19 04:00 36.2 75 18 137/72 (93) Room Air 02/01/19 00:00 36.0 83 18 157/80 (105) Room Air 01/31/19 20:43 86 18 143/80 01/31/19 20:43 98 Room Air 01/31/19 20:00 36.9 86 18 143/80 (101) 98 Room Air 01/31/19 17:30 36.8 84 18 131/81 (98) 99 Room Air 01/31/19 17:00 155/87 (109) 01/31/19 13:00 36.8 97 18 119/71 (87) 98 Room Air 01/31/19 08:54 85 18 136/82 01/31/19 08:35 36.8 85 18 136/82 (100) 98 Room Air 01/31/19 08:00 98 Room Air I & O 02/01/19 07:00 Intake Total 3740 ml Output Total 3950 ml Balance -210 ml Blood pressures are elevated but remain stable in the mild preeclampsia range patient is afebrile. The abdomen is gravid soft nontender nondistended Extremities show no clubbing or cyanosis there is no Homans sign Assessment and plan hospital day 8 now 36-1/7 weeks gestation. We will continue our current plan and management February 02, 2019 Patient is without complaint, she had a headache yesterday that resolved with Tylenol. Patient denies rupture membranes or bleeding Laboratory Tests Test 02/02/19 05:50 Range/Units White Blood Count 6.7 4.3-11.0 10^3/uL Red Blood Count 4.26 L 4.35-5.85 10^6/uL Hemoglobin 11.3 L 11.5-16.0 G/DL Hematocrit 35 35-52 % Mean Corpuscular Volume 82 80-99 FL Mean Corpuscular Hemoglobin 27 25-34 PG Mean Corpuscular Hemoglobin Concent 33 32-36 G/DL Red Cell Distribution Width 15.6 H 10.0-14.5 % Platelet Count 257 130-400 10^3/uL Mean Platelet Volume 9.9 7.4-10.4 FL Neutrophils (%) (Auto) 62 42-75 % Lymphocytes (%) (Auto) 30 12-44 % Monocytes (%) (Auto) 8 0-12 % Eosinophils (%) (Auto) 1 0-10 % Basophils (%) (Auto) 0 0-10 % Neutrophils # (Auto) 4.2 1.8-7.8 X 10^3 Lymphocytes # (Auto) 2.0 1.0-4.0 X 10^3 Monocytes # (Auto) 0.5 0.0-1.0 X 10^3 Eosinophils # (Auto) 0.0 0.0-0.3 10^3/uL Basophils # (Auto) 0.0 0.0-0.1 10^3/uL Sodium Level 135 135-145 MMOL/L Potassium Level 3.9 3.6-5.0 MMOL/L Chloride Level 107 98-107 MMOL/L Carbon Dioxide Level 17 L 21-32 MMOL/L Anion Gap 11 5-14 MMOL/L Blood Urea Nitrogen 5 L 7-18 MG/DL Creatinine 0.52 L 0.60-1.30 MG/DL Estimat Glomerular Filtration Rate > 60 BUN/Creatinine Ratio 10 Glucose Level 89 70-105 MG/DL Uric Acid 4.6 2.6-7.2 MG/DL Calcium Level 9.0 8.5-10.1 MG/DL Corrected Calcium 9.6 8.5-10.1 MG/DL Total Bilirubin 0.7 0.1-1.0 MG/DL Aspartate Amino Transf (AST/SGOT) 9 5-34 U/L Alanine Aminotransferase (ALT/SGPT) 6 0-55 U/L Alkaline Phosphatase 101 40-136 U/L Lactate Dehydrogenase 173 125-220 U/L Total Protein 6.8 6.4-8.2 GM/DL Albumin 3.2 3.2-4.5 GM/DL Lab work is stable. Uric acid is somewhat elevated for Vital Signs Date Time Temp Pulse Resp B/P (MAP) Pulse Ox O2 Delivery O2 Flow Rate FiO2 02/02/19 08:00 36.9 88 20 141/91 (108) 98 Room Air 02/02/19 07:00 Room Air 02/02/19 03:27 36.9 78 17 141/69 (93) 98 Room Air 02/01/19 23:48 36.9 85 18 135/74 (94) 96 Room Air 02/01/19 20:27 Room Air 02/01/19 20:26 18 02/01/19 20:00 36.8 88 17 158/87 (110) 96 Room Air 02/01/19 17:34 36.5 91 18 144/92 (109) 98 Room Air 02/01/19 16:25 159/92 (114) 02/01/19 14:50 36.5 90 18 140/79 (99) 98 Room Air 02/01/19 12:12 36.6 78 18 143/78 (99) 98 Room Air 02/01/19 09:16 Room Air I & O 02/02/19 07:00 Intake Total 2530 ml Output Total 3650 ml Balance -1120 ml Blood pressures remain elevated but less than severe preeclampsia criteria Physical exam is unchanged Assessment and plan Now hospital day 9 at 36-2/7 weeks' gestation - stable. Blood pressure is elevated distant with preeclampsia and is episodically in the severe preeclampsia range but remains acceptable. Management plan is to continue as is. EDINSON VASQUEZ MD Feb 02, 2019 09:15
[2019-02-02 12:00] VITALS: BP 153/98
[2019-02-02] MEDS: CATHETER FLUSH 10 ML SYR IV SCH (15:34)
[2019-02-02 16:00] VITALS: BP 146/93
[2019-02-02 20:47] VITALS: BP 165/89
[2019-02-02 21:15] VITALS: BP 151/94
[2019-02-03] VITALS (25 sets, daily range): BP systolic 127–194; BP diastolic 63–101
[2019-02-03] MEDS: LACTATED RINGERS 1,000 ML IV SCH (01:04)
[2019-02-03] MEDS ORDERED: CALCIUM GLUC. 10% 4.65 MEQ/10 ML VIAL IV PRN (06:00)
[2019-02-03] MEDS ORDERED: MAGNESIUM SULFATE DRIP 500 ML IV SCH ×2 (06:25→08:40)
[2019-02-03 06:29] LABS: BASOPHILS % (AUTO) 0 % (0-10); EOSINOPHILS % (AUTO) 1 % (0-10); HEMATOCRIT 36 % (35-52); HEMOGLOBIN 11.7 G/DL (11.5-16.0); LYMPHOCYTES # (AUTO) 2.1 X 10^3 (1.0-4.0); LYMPHOCYTES % (AUTO) 33 % (12-44); MEAN CORPUSCULAR HEMOGLOBIN 26 PG (25-34); MEAN CORPUSCULAR HGB CONC 32 G/DL (32-36); MEAN CORPUSCULAR VOLUME 81 FL (80-99); MEAN PLATELET VOLUME 9.5 FL (7.4-10.4); MONOCYTES # (AUTO) 0.5 X 10^3 (0.0-1.0); MONOCYTES % (AUTO) 7 % (0-12); NEUTROPHILS # (AUTO) 3.8 X 10^3 (1.8-7.8); NEUTROPHILS % (AUTO) 59 % (42-75); PLATELET COUNT 245 10^3/uL (130-400); WHITE BLOOD COUNT 6.5 10^3/uL (4.3-11.0)
[2019-02-03] MEDS ORDERED: CITRIC ACID/SOB CIT (BICITRA) 30 ML UDC PO ONE (06:30)
[2019-02-03] MEDS ORDERED: METOCLOPRAMIDE INJ 10 MG/2 ML (REGLAN) IV ONE (06:30)
[2019-02-03] MEDS ORDERED: FAMOTIDINE 20MG/2ML IV (PEPCID) IV ONE (06:30)
[2019-02-03 06:41] LABS: ALANINE AMINOTRANSFERASE 8 U/L (0-55); ALBUMIN 3.5 GM/DL (3.2-4.5); ALKALINE PHOSPHATASE 106 U/L (40-136); BILIRUBIN,TOTAL 0.8 MG/DL (0.1-1.0); BUN/CREATININE RATIO 11; CALCIUM 9.4 MG/DL (8.5-10.1); CARBON DIOXIDE 17 MMOL/L (21-32); CHLORIDE 106 MMOL/L (98-107); CREATININE SERUM 0.55 MG/DL (0.60-1.30); GFR ESTIMATED > 60; GLUCOSE 92 MG/DL (70-105); POTASSIUM 4.1 MMOL/L (3.6-5.0); SODIUM 136 MMOL/L (135-145); TOTAL PROTEIN 7.1 GM/DL (6.4-8.2)
[2019-02-03] MEDS ORDERED: LACTATED RINGERS 1,000 ML IV PRN (07:02)
[2019-02-03] MEDS ORDERED: fentaNYL INJECTION 100 MCG/2 ML AMP ONE (07:14)
[2019-02-03] MEDS ORDERED: metroNIDAZOLE 500MG/100ML IVPB 100 ML IV ONE (07:15)
[2019-02-03] MEDS ORDERED: ceFAZolin INJECTION 2,000 MG in WATER (STERILE) FOR INJECTION 10 ML IV ONE (07:15)
--- NOTE | 2019-02-03 07:15 | Progress Note ---
Standard Progress Note Progress Notes/Assess & Plan Date Seen by a Provider: Feb 03, 2019 Time Seen by a Provider: 07:12 Progress/Assessment & Plan This patient complains of a mild headache. She denies rupture membranes or bleeding she reports that she feels like she is beginning to get a bit swollen. She denies contractions Vital Signs Date Time Temp Pulse Resp B/P (MAP) Pulse Ox O2 Delivery O2 Flow Rate FiO2 01/26/19 04:35 36.5 80 18 130/69 (89) Room Air 01/26/19 00:18 35.4 84 18 155/89 (111) 99 Room Air 01/25/19 20:06 36.3 89 18 152/85 (107) 97 Room Air 01/25/19 16:55 37.0 86 18 153/86 (108) Room Air 01/25/19 16:40 94 18 153/84 (107) Room Air 01/25/19 16:25 90 18 148/81 (103) Room Air 01/25/19 16:10 97 18 146/81 (102) Room Air 01/25/19 15:55 87 18 147/83 (104) Room Air 01/25/19 15:25 88 18 147/79 (101) Room Air 01/25/19 15:10 89 18 148/80 (102) Room Air 01/25/19 14:55 93 18 149/81 (103) Room Air 01/25/19 14:40 91 18 148/83 (104) Room Air 01/25/19 14:20 Room Air 01/25/19 14:20 36.2 83 18 98 Room Air 01/25/19 14:19 36.2 83 18 159/84 (109) 98 Room Air I & O 01/26/19 07:00 Intake Total 1000 ml Balance 1000 ml Blood pressures continued to be in the mild preeclampsia range consistently in the 140s and 150s systolically Abdomen is benign. Fundus is nontender Extremities show no clubbing cyanosis. There is some pretibial pitting edema. DTRs are 3+ to 4 globally Assessment and plan this is hospital day 2 with the patient now at 35-2/7 weeks' gestation with overt preeclampsia and a history of severe preeclampsia. We will continue minimizing stimulation and activity to suppress the blood pressure, twice daily NSTs for assessment of well-being, we'll repeat her lab work on Monday and when necessary if the change in condition. Patient is stable with mild preeclampsia at this point. Condition is guarded at this patient does have a history of rapid progression to severe preeclampsia January 27, 2019 This patient is without complaint. She denies chest pain, denies shortness breath, denies nausea vomiting, and denies headache. She denies rupture membranes or bleeding. She does feel baby moving. She has rare contractions. She is testing her own blood sugars and watching her gestational diabetes diet and her blood sugars per her report have been running generally less than 120 at 2 hours postprandial. She did have several elevated blood sugars while she was receiving an IV fluids containing D5 that has been changed and her blood sugars have returned to their baseline on her metformin Vital Signs Date Time Temp Pulse Resp B/P (MAP) Pulse Ox O2 Delivery O2 Flow Rate FiO2 01/27/19 15:26 36.9 86 18 140/72 (94) 97 Room Air 01/27/19 11:15 37.2 92 18 153/78 (103) 97 Room Air 01/27/19 07:50 85 18 148/82 (104) Room Air 01/27/19 07:33 36.7 82 18 165/90 (115) 98 Room Air 01/27/19 07:33 98 Room Air 01/27/19 02:40 74 18 140/75 (96) 99 Room Air 01/26/19 22:40 36.6 83 18 157/77 (103) 99 Room Air 01/26/19 21:01 93 18 I & O 01/27/19 07:00 Intake Total 1400 ml Balance 1400 ml Blood pressures are persistently elevated however they seem to be hovering just below the severe preeclampsia range Patient's abdomen is gravid soft nontender Extremities show no clubbing or cyanosis. There is no Homans sign. Her DTRs are brisk at 3+ to 4 over 4 Pelvic exam is deferred NSTs when performed is reactive Assessment and plan 35 weeks and 3 days on hospital day 3 with persistently elevated blood pressures flirting with severe preeclampsia -patient does understand that when blood pressures are persistently in the severe preeclampsia range that it will be necessary to proceed with delivery. We will continue close blood pressure monitoring and repeat lab work tomorrow January 28, 2019 Patient is without complaint. She is essentially unchanged from yesterday. Vital Signs Date Time Temp Pulse Resp B/P (MAP) Pulse Ox O2 Delivery O2 Flow Rate FiO2 01/28/19 04:00 36.6 18 143/79 (100) 98 Room Air 01/28/19 00:10 75 18 139/70 (93) Room Air 01/27/19 20:05 85 18 158/83 (108) 01/27/19 19:55 83 18 170/82 (111) 01/27/19 15:26 36.9 86 18 140/72 (94) 97 Room Air 01/27/19 11:15 37.2 92 18 153/78 (103) 97 Room Air Her blood pressures remained labile consistently less than 160/100 but episodically exceeding that with a high being 170/82 last evening. Lab work is pending The abdomen is benign Extremities show no clubbing or cyanosis. There is some pretibial pitting edema Assessment and plan hospital day 4 in a patient with preeclampsia bordering on severe preeclampsia. Plan is for delivery when she shows progression of preecla mpsia to persistent severe preeclampsia. Is doubtful that she will attain 37 weeks but if she should she would be delivered at that time January 29, 2019 This patient is without complaint. She denies headache, denies shortness of breath, contractions, denies nausea vomiting. Vital Signs Date Time Temp Pulse Resp B/P (MAP) Pulse Ox O2 Delivery O2 Flow Rate FiO2 01/29/19 06:07 18 01/29/19 04:30 36.0 81 16 134/71 (92) 98 Room Air 01/28/19 23:57 36.6 81 16 139/73 (95) 98 Room Air 01/28/19 21:14 36.2 82 18 160/82 (108) 97 Room Air 01/28/19 20:57 Room Air 01/28/19 15:45 36.6 18 155/86 (109) Room Air 01/28/19 10:20 93 18 01/28/19 10:00 Room Air 01/28/19 09:50 36.6 20 154/78 (103) Room Air I & O 01/29/19 07:00 Intake Total 700 ml Balance 700 ml Blood pressure is relatively stable episodically elevated acceptable with the patient at rest Laboratory Tests Test 01/28/19 10:20 Range/Units White Blood Count 6.8 4.3-11.0 10^3/uL Red Blood Count 4.06 L 4.35-5.85 10^6/uL Hemoglobin 10.6 L 11.5-16.0 G/DL Hematocrit 34 L 35-52 % Mean Corpuscular Volume 83 80-99 FL Mean Corpuscular Hemoglobin 26 25-34 PG Mean Corpuscular Hemoglobin Concent 32 32-36 G/DL Red Cell Distribution Width 16.2 H 10.0-14.5 % Platelet Count 292 130-400 10^3/uL Mean Platelet Volume 9.4 7.4-10.4 FL Neutrophils (%) (Auto) 56 42-75 % Lymphocytes (%) (Auto) 30 12-44 % Monocytes (%) (Auto) 13 H 0-12 % Eosinophils (%) (Auto) 0 0-10 % Basophils (%) (Auto) 0 0-10 % Neutrophils # (Auto) 3.9 1.8-7.8 X 10^3 Lymphocytes # (Auto) 2.1 1.0-4.0 X 10^3 Monocytes # (Auto) 0.9 0.0-1.0 X 10^3 Eosinophils # (Auto) 0.0 0.0-0.3 10^3/uL Basophils # (Auto) 0.0 0.0-0.1 10^3/uL Sodium Level 136 135-145 MMOL/L Potassium Level 3.8 3.6-5.0 MMOL/L Chloride Level 107 98-107 MMOL/L Carbon Dioxide Level 20 L 21-32 MMOL/L Anion Gap 9 5-14 MMOL/L Blood Urea Nitrogen 8 7-18 MG/DL Creatinine 0.58 L 0.60-1.30 MG/DL Estimat Glomerular Filtration Rate > 60 BUN/Creatinine Ratio 14 Glucose Level 81 70-105 MG/DL Uric Acid 5.0 2.6-7.2 MG/DL Calcium Level 8.6 8.5-10.1 MG/DL Corrected Calcium 9.1 8.5-10.1 MG/DL Total Bilirubin 0.7 0.1-1.0 MG/DL Aspartate Amino Transf (AST/SGOT) 11 5-34 U/L Alanine Aminotransferase (ALT/SGPT) 9 0-55 U/L Alkaline Phosphatase 87 40-136 U/L Lactate Dehydrogenase 134 125-220 U/L Total Protein 6.8 6.4-8.2 GM/DL Albumin 3.4 3.2-4.5 GM/DL Patient's lab work is stable The abdomen is gravid and nontender Extremities show no clubbing or cyanosis Assessment and plan hospital day number 5 and currently 35+ weeks gestation preeclampsia bordering on severe preeclampsia. His blood pressures do elevated with activity she remains essentially at bed rest. pLan is for delivery for severe preeclampsia or at 37 weeks gestation. Patient understands that limiting activity likely will slow the progression to severe preeclampsia could occur at any time. We are alert to the increased risk for progression to eclampsia as well January 30, 2019 Patient has no specific complaints. She denies rupture membranes or bleeding. She does feel baby moving. He has had a mild headache. Vital Signs Date Time Temp Pulse Resp B/P (MAP) Pulse Ox O2 Delivery O2 Flow Rate FiO2 01/30/19 08:30 36.6 92 18 136/77 (96) 96 Room Air 01/30/19 04:10 36.5 78 18 146/85 (105) 96 Room Air 01/30/19 00:14 36.4 88 18 156/88 (110) 96 Room Air 01/29/19 19:50 36.6 87 18 154/95 (114) 97 Room Air 01/29/19 15:48 36.4 90 18 152/83 (106) 98 Room Air 01/29/19 11:47 36.8 90 18 142/76 (98) 97 Room Air 01/29/19 11:47 90 18 142/76 Blood pressures remained elevated in the high range for preeclampsia Abdomen is gravid soft nontender Extremities show no clubbing or cyanosis. There is no Homans sign. DTRs are elevated 3+/4 over 4 Assessment and plan hospital day number 6 at 35-6/7 weeks' gestation with preeclampsia bordering on severe preeclampsia plan is to continue blood pressure and monitoring with delivery For severe preeclampsia or at 37 weeks gestation January 31, 2019 Patient is without complaint. Her headache has resolved. Vital Signs Date Time Temp Pulse Resp B/P (MAP) Pulse Ox O2 Delivery O2 Flow Rate FiO2 01/31/19 05:00 36.3 67 16 127/72 (90) 98 Room Air 01/31/19 01:31 80 18 148/85 01/31/19 00:35 37.3 80 18 148/85 (106) 97 Room Air 01/30/19 21:05 98 Room Air 01/30/19 20:56 36.9 89 20 156/95 (115) 99 Room Air 01/30/19 16:28 36.5 91 18 143/84 (103) 98 Room Air 01/30/19 12:35 36.5 82 18 151/79 (103) 99 Room Air I & O 01/31/19 07:00 Intake Total 1840 ml Output Total 1500 ml Balance 340 ml Blood pressures are persistently in the 150s over 80s and 90s The abdomen is benign. The uterus is nontender. Extremities show no clubbing or cyanosis. There is no Homans sign. Assessment and plan hospital day 7 now at 36 weeks gestation. Patient at bed rest has maintained blood pressures and a subcutaneous severe preeclampsia range -the blood pressures do elevate significantly with - patient understands that limited activity will likely prolong the . Plan is to continue current surveillance and effect delivery at 37 weeks or with progression to severe preeclampsia February 01, 2019 Patient remains without complaint. Vital Signs Date Time Temp Pulse Resp B/P (MAP) Pulse Ox O2 Delivery O2 Flow Rate FiO2 02/01/19 04:00 36.2 75 18 137/72 (93) Room Air 02/01/19 00:00 36.0 83 18 157/80 (105) Room Air 01/31/19 20:43 86 18 143/80 01/31/19 20:43 98 Room Air 01/31/19 20:00 36.9 86 18 143/80 (101) 98 Room Air 01/31/19 17:30 36.8 84 18 131/81 (98) 99 Room Air 01/31/19 17:00 155/87 (109) 01/31/19 13:00 36.8 97 18 119/71 (87) 98 Room Air 01/31/19 08:54 85 18 136/82 01/31/19 08:35 36.8 85 18 136/82 (100) 98 Room Air 01/31/19 08:00 98 Room Air I & O 02/01/19 07:00 Intake Total 3740 ml Output Total 3950 ml Balance -210 ml Blood pressures are elevated but remain stable in the mild preeclampsia range patient is afebrile. The abdomen is gravid soft nontender nondistended Extremities show no clubbing or cyanosis there is no Homans sign Assessment and plan hospital day 8 now 36-1/7 weeks gestation. We will continue our current plan and management February 02, 2019 Patient is without complaint, she had a headache yesterday that resolved with Tylenol. Patient denies rupture membranes or bleeding Laboratory Tests Test 02/02/19 05:50 Range/Units White Blood Count 6.7 4.3-11.0 10^3/uL Red Blood Count 4.26 L 4.35-5.85 10^6/uL Hemoglobin 11.3 L 11.5-16.0 G/DL Hematocrit 35 35-52 % Mean Corpuscular Volume 82 80-99 FL Mean Corpuscular Hemoglobin 27 25-34 PG Mean Corpuscular Hemoglobin Concent 33 32-36 G/DL Red Cell Distribution Width 15.6 H 10.0-14.5 % Platelet Count 257 130-400 10^3/uL Mean Platelet Volume 9.9 7.4-10.4 FL Neutrophils (%) (Auto) 62 42-75 % Lymphocytes (%) (Auto) 30 12-44 % Monocytes (%) (Auto) 8 0-12 % Eosinophils (%) (Auto) 1 0-10 % Basophils (%) (Auto) 0 0-10 % Neutrophils # (Auto) 4.2 1.8-7.8 X 10^3 Lymphocytes # (Auto) 2.0 1.0-4.0 X 10^3 Monocytes # (Auto) 0.5 0.0-1.0 X 10^3 Eosinophils # (Auto) 0.0 0.0-0.3 10^3/uL Basophils # (Auto) 0.0 0.0-0.1 10^3/uL Sodium Level 135 135-145 MMOL/L Potassium Level 3.9 3.6-5.0 MMOL/L Chloride Level 107 98-107 MMOL/L Carbon Dioxide Level 17 L 21-32 MMOL/L Anion Gap 11 5-14 MMOL/L Blood Urea Nitrogen 5 L 7-18 MG/DL Creatinine 0.52 L 0.60-1.30 MG/DL Estimat Glomerular Filtration Rate > 60 BUN/Creatinine Ratio 10 Glucose Level 89 70-105 MG/DL Uric Acid 4.6 2.6-7.2 MG/DL Calcium Level 9.0 8.5-10.1 MG/DL Corrected Calcium 9.6 8.5-10.1 MG/DL Total Bilirubin 0.7 0.1-1.0 MG/DL Aspartate Amino Transf (AST/SGOT) 9 5-34 U/L Alanine Aminotransferase (ALT/SGPT) 6 0-55 U/L Alkaline Phosphatase 101 40-136 U/L Lactate Dehydrogenase 173 125-220 U/L Total Protein 6.8 6.4-8.2 GM/DL Albumin 3.2 3.2-4.5 GM/DL Lab work is stable. Uric acid is somewhat elevated for Vital Signs Date Time Temp Pulse Resp B/P (MAP) Pulse Ox O2 Delivery O2 Flow Rate FiO2 02/02/19 08:00 36.9 88 20 141/91 (108) 98 Room Air 02/02/19 07:00 Room Air 02/02/19 03:27 36.9 78 17 141/69 (93) 98 Room Air 02/01/19 23:48 36.9 85 18 135/74 (94) 96 Room Air 02/01/19 20:27 Room Air 02/01/19 20:26 18 02/01/19 20:00 36.8 88 17 158/87 (110) 96 Room Air 02/01/19 17:34 36.5 91 18 144/92 (109) 98 Room Air 02/01/19 16:25 159/92 (114) 02/01/19 14:50 36.5 90 18 140/79 (99) 98 Room Air 02/01/19 12:12 36.6 78 18 143/78 (99) 98 Room Air 02/01/19 09:16 Room Air I & O 02/02/19 07:00 Intake Total 2530 ml Output Total 3650 ml Balance -1120 ml Blood pressures remain elevated but less than severe preeclampsia criteria Physical exam is unchanged Assessment and plan Now hospital day 9 at 36-2/7 weeks' gestation - stable. Blood pressure is elevated distant with preeclampsia and is episodically in the severe preeclampsia range but remains acceptable. Management plan is to continue as is. February 03, 2019 Patient is without complaint except for a mild headache. She denies rupture membranes or bleeding. She is aware that her blood pressures have progressed to the point where delivery is warranted. Vital Signs Date Time Temp Pulse Resp B/P (MAP) Pulse Ox O2 Delivery O2 Flow Rate FiO2 02/03/19 06:30 94 18 156/87 (110) 02/03/19 06:14 87 18 176/98 (124) 02/03/19 01:56 79 16 152/82 (105) Room Air 02/03/19 01:30 83 16 172/101 (124) Room Air 02/03/19 01:00 18 02/03/19 01:00 83 16 171/95 (120) Room Air 02/02/19 21:15 93 16 151/94 (113) Room Air 02/02/19 21:00 Room Air 02/02/19 20:49 98 Room Air 02/02/19 20:47 36.6 91 16 165/89 (114) Room Air 02/02/19 16:00 36.9 93 16 146/93 (110) 97 Room Air 02/02/19 12:00 36.8 83 16 153/98 (116) 98 Room Air 02/02/19 09:00 98 Room Air 02/02/19 08:00 36.9 88 20 141/91 (108) 98 Room Air I & O 02/03/19 07:00 Intake Total 1140 ml Output Total 900 ml Balance 240 ml Most recent blood pressure still was in the 170 range. Abdomen is benign Extremities show no clubbing or cyanosis is no Homans sign Laboratory Tests Test 02/03/19 06:10 Range/Units White Blood Count 6.5 4.3-11.0 10^3/uL Red Blood Count 4.48 4.35-5.85 10^6/uL Hemoglobin 11.7 11.5-16.0 G/DL Hematocrit 36 35-52 % Mean Corpuscular Volume 81 80-99 FL Mean Corpuscular Hemoglobin 26 25-34 PG Mean Corpuscular Hemoglobin Concent 32 32-36 G/DL Red Cell Distribution Width 16.0 H 10.0-14.5 % Platelet Count 245 130-400 10^3/uL Mean Platelet Volume 9.5 7.4-10.4 FL Neutrophils (%) (Auto) 59 42-75 % Lymphocytes (%) (Auto) 33 12-44 % Monocytes (%) (Auto) 7 0-12 % Eosinophils (%) (Auto) 1 0-10 % Basophils (%) (Auto) 0 0-10 % Neutrophils # (Auto) 3.8 1.8-7.8 X 10^3 Lymphocytes # (Auto) 2.1 1.0-4.0 X 10^3 Monocytes # (Auto) 0.5 0.0-1.0 X 10^3 Eosinophils # (Auto) 0.0 0.0-0.3 10^3/uL Basophils # (Auto) 0.0 0.0-0.1 10^3/uL Sodium Level 136 135-145 MMOL/L Potassium Level 4.1 3.6-5.0 MMOL/L Chloride Level 106 98-107 MMOL/L Carbon Dioxide Level 17 L 21-32 MMOL/L Anion Gap 13 5-14 MMOL/L Blood Urea Nitrogen 6 L 7-18 MG/DL Creatinine 0.55 L 0.60-1.30 MG/DL Estimat Glomerular Filtration Rate > 60 BUN/Creatinine Ratio 11 Glucose Level 92 70-105 MG/DL Calcium Level 9.4 8.5-10.1 MG/DL Corrected Calcium 9.8 8.5-10.1 MG/DL Total Bilirubin 0.8 0.1-1.0 MG/DL Aspartate Amino Transf (AST/SGOT) 10 5-34 U/L Alanine Aminotransferase (ALT/SGPT) 8 0-55 U/L Alkaline Phosphatase 106 40-136 U/L Lactate Dehydrogenase 117 L 125-220 U/L Total Protein 7.1 6.4-8.2 GM/DL Albumin 3.5 3.2-4.5 GM/DL Patient's lab work is stable Assessment and plan 36-2/7 weeks gestation now on hospital day 10 with blood pressures in the 170s over 100 range patient has been started on IV magnesium for seizure prophylaxis and plan is to proceed with repeat . We will continue the magnesium after delivery until her blood pressures began to normalize EDINSON VASQUEZ MD Feb 03, 2019 07:15
[2019-02-03] MEDS ORDERED: OXYTOCIN/NORMAL SALINE 1,000 ML IV ONE (07:23)
[2019-02-03] MEDS ORDERED: ceFAZolin 2 GM/50 ML NS 50 ML ONE (07:31)
[2019-02-03] MEDS ORDERED: DOCU-143 PO (07:36)
[2019-02-03] MEDS ORDERED: OXYC1TAB12 PO (07:36)
[2019-02-03] MEDS ORDERED: IBUP-1780 PO (07:36)
--- NOTE | 2019-02-03 07:36 | Discharge Instructions ---
Discharge Instructions Discharge Medications New, Converted or Re-Newed RX: RX on Chart Patient Instructions Return to The Hospital For: As directed Activity & Diet Discharge Diet: No Restrictions Activity as Tolerated: No Orders-Post D/C & Referrals Follow Up Appt: RTC 1 week for incision check. Call to make follow up appt. for patient in 4 weeks. Wound Care: Remove brina, apply benzoin and steri strips. Activity Per routine post instructions. Please call in RX to patient pharmacy. Diet as tolerated Patient may shower or tub bathe as desired. Continue home meds EDINSON VASQUEZ MD Feb 03, 2019 07:36
[2019-02-03] MEDS ORDERED: ONDANSETRON 4 MG/2 ML (SDV) Z0FRAN ONE (08:06)
[2019-02-03] MEDS ORDERED: BUPIVACAINE 0.5% 30 ML (SENSORCAINE) VIAL ONE (08:10)
[2019-02-03] MEDS ORDERED: OXYTOCIN/NORMAL SALINE 500 ML IV SCH (08:40)
[2019-02-03] MEDS ORDERED: D5 LR IV SOLUTION 1,000 ML IV SCH (08:40)
[2019-02-03] MEDS ORDERED: MEASLES,MUMPS,RUBELLA 1 EA INJ SC ONE (08:45)
[2019-02-03] MEDS ORDERED: ONDANSETRON 4 MG/2 ML (SDV) Z0FRAN IVP PRN (08:45)
[2019-02-03] MEDS ORDERED: TETANUS,DIPTH,PERTUSS P/F (BOOSTRIX) 0.5 ML VIAL IM ONE (08:45)
[2019-02-03] MEDS ORDERED: NALOXONE 0.4 MG/ML 1 ML (NARCAN) VIAL IV PRN (09:15)
[2019-02-03] MEDS ORDERED: ONDANSETRON 4 MG/2 ML (SDV) Z0FRAN IV PRN (09:15)
[2019-02-03] MEDS ORDERED: diphenhydrAMINE 50 MG/ML INJ (BENADRYL) IV PRN (09:15)
[2019-02-03] MEDS: KETOROLAC 30 MG/ML VIAL IVP SCH ×3 (09:21→21:20)
[2019-02-03] MEDS: DOCUSATE SODIUM 100 MG (COLACE) CAP PO SCH ×4 (09:59→21:21)
[2019-02-03] MEDS: NIFEdipine ER 30 MG (PROCARDIA XL) TAB PO SCH (09:59)
[2019-02-03] MEDS: metFORMIN 500 MG (GLUCOPHAGE) TAB PO SCH (09:59)
--- NOTE | 2019-02-03 13:23 | OPERATIVE REPORT ---
DATE OF SERVICE: 02/03/2019 PREOPERATIVE DIAGNOSES: A 36 and 2/7 weeks' gestation with severe preeclampsia and previous C-sections. POSTOPERATIVE DIAGNOSES: A 36 and 2/7 weeks' gestation with severe preeclampsia and previous C-sections. OPERATIVE PROCEDURE: Repeat low transverse delivery of a viable female with Apgars of 8 and 9 at 1 and 5 minutes respectively, weight of 6 pounds 11 ounces, time of 0817 and a cord blood pH of 7.28. OPERATIVE DESCRIPTION: With the patient in the supine position under satisfactory spinal anesthesia, she was prepped and draped in the usual fashion for abdominal surgery. Ramirez catheter was placed in the urinary bladder. A repeat Pfannenstiel incision was made through skin with scalpel, the patient's abdomen entered in the usual manner. Bladder retractor placed into position and clean scalpel used to make a 4 cm hysterotomy incision transversely across the lower uterine segment. That was extended by blunt dissection as well. Copious clear fluid was released on hysterotomy. Patel forceps were applied to facilitate delivery of a vigorous viable female infant with the stats as noted above. The was bulb suctioned on delivery of the head. There was a shoulder cord that was easily released on completion of delivery. Umbilical cord was doubly clamped and cut while the baby was being suctioned again. The infant was then passed to the pediatric nurse in attendance for delivery. Cord bloods were obtained. The placenta delivered spontaneously Gotti. It was normal with a 3-vessel cord. The uterus was exteriorized. The interior wiped clean with a wet laparotomy sponge. Uterine incision then closed with a running locked suture of 2-0 Vicryl. Hemostasis was complete. The uterus was returned to abdominal cavity. All blood clot and debris was removed from the abdominal cavity. Sponge and needle counts correct, hemostasis assured. The anterior parietal peritoneum was closed with running suture of 2-0 Vicryl. Rectus muscles were closed with that suture as well. The rectus fascia was closed with 2-0 Vicryl, subcutaneous tissue was closed with 2-0 Vicryl and the skin was stapled. Sponge and needle counts were correct on completion of the procedure. Estimated blood loss was around 500 mL. The patient tolerated the procedure well and was transferred to the recovery room in stable condition. It was noted that there was a pink tinge to the urine. The Ramirez catheter was left to dependent drainage, and her urine output and appearance of the urine will be monitored for any evidence of urinary tract injury. Job ID: [id number] DocumentID: [id number] Dictated Date: 02/03/2019 08:40:48 Medical Physicist Date: 02/03/2019 09:35:19 Dictated By: EDINSON VASQUEZ MD
[2019-02-03] MEDS: CATHETER FLUSH 10 ML SYR IV SCH (15:01)
[2019-02-03] MEDS: D5 LR IV SOLUTION 1,000 ML IV SCH ×2 (15:01→23:37)
[2019-02-03 16:20] LABS: BASOPHILS % (AUTO) 0 % (0-10); EOSINOPHILS % (AUTO) 0 % (0-10); HEMATOCRIT 31 % (35-52); HEMOGLOBIN 10.2 G/DL (11.5-16.0); LYMPHOCYTES % (AUTO) 21 % (12-44); MEAN CORPUSCULAR HEMOGLOBIN 27 PG (25-34); MEAN CORPUSCULAR HGB CONC 33 G/DL (32-36); MEAN CORPUSCULAR VOLUME 82 FL (80-99); MEAN PLATELET VOLUME 9.4 FL (7.4-10.4); MONOCYTES # (AUTO) 0.7 X 10^3 (0.0-1.0); MONOCYTES % (AUTO) 7 % (0-12); NEUTROPHILS # (AUTO) 6.5 X 10^3 (1.8-7.8); NEUTROPHILS % (AUTO) 71 % (42-75); PLATELET COUNT 289 10^3/uL (130-400); RED CELL DISTRIBUTION WIDTH 15.9 % (10.0-14.5); WHITE BLOOD COUNT 9.2 10^3/uL (4.3-11.0)
[2019-02-03 16:38] LABS: ALANINE AMINOTRANSFERASE 7 U/L (0-55); ALKALINE PHOSPHATASE 89 U/L (40-136); BILIRUBIN,TOTAL 0.7 MG/DL (0.1-1.0); BUN/CREATININE RATIO 10; CALCIUM 7.6 MG/DL (8.5-10.1); CARBON DIOXIDE 17 MMOL/L (21-32); CHLORIDE 106 MMOL/L (98-107); CREATININE SERUM 0.69 MG/DL (0.60-1.30); GFR ESTIMATED > 60; GLUCOSE 119 MG/DL (70-105); SODIUM 136 MMOL/L (135-145); TOTAL PROTEIN 6.3 GM/DL (6.4-8.2)
[2019-02-04] MEDS: oxyCODONE/APAP 10/325MG (PERCOCET 10) TABLET PO PRN ×3 (01:18→20:56)
[2019-02-04] MEDS: KETOROLAC 30 MG/ML VIAL IVP SCH (05:01)
[2019-02-04 05:03] VITALS: BP 138/65
[2019-02-04] MEDS: NIFEdipine ER 30 MG (PROCARDIA XL) TAB PO SCH (07:55)
[2019-02-04 08:00] VITALS: BP 133/68
[2019-02-04] MEDS: DOCUSATE SODIUM 100 MG (COLACE) CAP PO SCH ×2 (08:10→20:56)
--- NOTE | 2019-02-04 08:27 | Anesthesia-Regional Post-Op ---
Regional Patient Condition Mental Status: Alert, Oriented x3 Circulation: Same as Pre-Op Headache: Absent Sensation: Full Recovery Motor Block: Absent Post Op Complications Complications None Follow Up Care/Instructions Patient Instructions None needed. Anesthesia/Patient Condition Patient is doing well, no complaints, stable vital signs, no apparent adverse anesthesia problems. No complications reported per nursing. KASSIDY ESQUIVEL CRNA Feb 04, 2019 08:27
[2019-02-04] MEDS: IBUPROFEN 800 MG (MOTRIN) TAB PO SCH ×3 (11:48→23:51)
[2019-02-04 11:50] VITALS: BP 113/59
[2019-02-04 17:00] VITALS: BP 133/66
[2019-02-04 19:43] VITALS: BP 144/78
[2019-02-04 23:57] VITALS: BP 145/79
[2019-02-05] MEDS: IBUPROFEN 800 MG (MOTRIN) TAB PO SCH ×2 (05:40→12:13)
[2019-02-05 05:42] VITALS: BP 149/83
[2019-02-05] MEDS: NIFEdipine ER 30 MG (PROCARDIA XL) TAB PO SCH (08:36)
[2019-02-05] MEDS: DOCUSATE SODIUM 100 MG (COLACE) CAP PO SCH (08:42)
[2019-02-05] MEDS ORDERED: Nifedipine PO (10:09)
--- NOTE | 2019-02-05 10:11 | Discharge Instructions ---
Discharge Instructions Orders-Post D/C & Referrals Follow Up Appt: RTC Monday February 11, 2019 at 930am for incision check. Call to make follow up appt. for patient in 4 weeks. Wound Care: Remove brina, apply benzoin and steri strips. Activity Per routine post instructions. Please call in RX to patient pharmacy. Diet as tolerated Patient may shower or tub bathe as desired. Continue home meds EDINSON VASQUEZ MD Feb 05, 2019 10:11
--- NOTE | 2019-02-05 10:16 | Progress Note ---
Standard Progress Note Progress Notes/Assess & Plan Date Seen by a Provider: Feb 05, 2019 Time Seen by a Provider: 10:11 Progress/Assessment & Plan This patient complains of a mild headache. She denies rupture membranes or bleeding she reports that she feels like she is beginning to get a bit swollen. She denies contractions Vital Signs Date Time Temp Pulse Resp B/P (MAP) Pulse Ox O2 Delivery O2 Flow Rate FiO2 01/26/19 04:35 36.5 80 18 130/69 (89) Room Air 01/26/19 00:18 35.4 84 18 155/89 (111) 99 Room Air 01/25/19 20:06 36.3 89 18 152/85 (107) 97 Room Air 01/25/19 16:55 37.0 86 18 153/86 (108) Room Air 01/25/19 16:40 94 18 153/84 (107) Room Air 01/25/19 16:25 90 18 148/81 (103) Room Air 01/25/19 16:10 97 18 146/81 (102) Room Air 01/25/19 15:55 87 18 147/83 (104) Room Air 01/25/19 15:25 88 18 147/79 (101) Room Air 01/25/19 15:10 89 18 148/80 (102) Room Air 01/25/19 14:55 93 18 149/81 (103) Room Air 01/25/19 14:40 91 18 148/83 (104) Room Air 01/25/19 14:20 Room Air 01/25/19 14:20 36.2 83 18 98 Room Air 01/25/19 14:19 36.2 83 18 159/84 (109) 98 Room Air I & O 01/26/19 07:00 Intake Total 1000 ml Balance 1000 ml Blood pressures continued to be in the mild preeclampsia range consistently in the 140s and 150s systolically Abdomen is benign. Fundus is nontender Extremities show no clubbing cyanosis. There is some pretibial pitting edema. DTRs are 3+ to 4 globally Assessment and plan this is hospital day 2 with the patient now at 35-2/7 weeks' gestation with overt preeclampsia and a history of severe preeclampsia. We will continue minimizing stimulation and activity to suppress the blood pressure, twice daily NSTs for assessment of well-being, we'll repeat her lab work on Monday and when necessary if the change in condition. Patient is stable with mild preeclampsia at this point. Condition is guarded at this patient does have a history of rapid progression to severe preeclampsia January 27, 2019 This patient is without complaint. She denies chest pain, denies shortness breath, denies nausea vomiting, and denies headache. She denies rupture membranes or bleeding. She does feel baby moving. She has rare contractions. She is testing her own blood sugars and watching her gestational diabetes diet and her blood sugars per her report have been running generally less than 120 at 2 hours postprandial. She did have several elevated blood sugars while she was receiving an IV fluids containing D5 that has been changed and her blood sugars have returned to their baseline on her metformin Vital Signs Date Time Temp Pulse Resp B/P (MAP) Pulse Ox O2 Delivery O2 Flow Rate FiO2 01/27/19 15:26 36.9 86 18 140/72 (94) 97 Room Air 01/27/19 11:15 37.2 92 18 153/78 (103) 97 Room Air 01/27/19 07:50 85 18 148/82 (104) Room Air 01/27/19 07:33 36.7 82 18 165/90 (115) 98 Room Air 01/27/19 07:33 98 Room Air 01/27/19 02:40 74 18 140/75 (96) 99 Room Air 01/26/19 22:40 36.6 83 18 157/77 (103) 99 Room Air 01/26/19 21:01 93 18 I & O 01/27/19 07:00 Intake Total 1400 ml Balance 1400 ml Blood pressures are persistently elevated however they seem to be hovering just below the severe preeclampsia range Patient's abdomen is gravid soft nontender Extremities show no clubbing or cyanosis. There is no Homans sign. Her DTRs are brisk at 3+ to 4 over 4 Pelvic exam is deferred NSTs when performed is reactive Assessment and plan 35 weeks and 3 days on hospital day 3 with persistently elevated blood pressures flirting with severe preeclampsia -patient does understand that when blood pressures are persistently in the severe preeclampsia range that it will be necessary to proceed with delivery. We will continue close blood pressure monitoring and repeat lab work tomorrow January 28, 2019 Patient is without complaint. She is essentially unchanged from yesterday. Vital Signs Date Time Temp Pulse Resp B/P (MAP) Pulse Ox O2 Delivery O2 Flow Rate FiO2 01/28/19 04:00 36.6 18 143/79 (100) 98 Room Air 01/28/19 00:10 75 18 139/70 (93) Room Air 01/27/19 20:05 85 18 158/83 (108) 01/27/19 19:55 83 18 170/82 (111) 01/27/19 15:26 36.9 86 18 140/72 (94) 97 Room Air 01/27/19 11:15 37.2 92 18 153/78 (103) 97 Room Air Her blood pressures remained labile consistently less than 160/100 but episodically exceeding that with a high being 170/82 last evening. Lab work is pending The abdomen is benign Extremities show no clubbing or cyanosis. There is some pretibial pitting edema Assessment and plan hospital day 4 in a patient with preeclampsia bordering on severe preeclampsia. Plan is for delivery when she shows progression of preecla mpsia to persistent severe preeclampsia. Is doubtful that she will attain 37 weeks but if she should she would be delivered at that time January 29, 2019 This patient is without complaint. She denies headache, denies shortness of breath, contractions, denies nausea vomiting. Vital Signs Date Time Temp Pulse Resp B/P (MAP) Pulse Ox O2 Delivery O2 Flow Rate FiO2 01/29/19 06:07 18 01/29/19 04:30 36.0 81 16 134/71 (92) 98 Room Air 01/28/19 23:57 36.6 81 16 139/73 (95) 98 Room Air 01/28/19 21:14 36.2 82 18 160/82 (108) 97 Room Air 01/28/19 20:57 Room Air 01/28/19 15:45 36.6 18 155/86 (109) Room Air 01/28/19 10:20 93 18 01/28/19 10:00 Room Air 01/28/19 09:50 36.6 20 154/78 (103) Room Air I & O 01/29/19 07:00 Intake Total 700 ml Balance 700 ml Blood pressure is relatively stable episodically elevated acceptable with the patient at rest Laboratory Tests Test 01/28/19 10:20 Range/Units White Blood Count 6.8 4.3-11.0 10^3/uL Red Blood Count 4.06 L 4.35-5.85 10^6/uL Hemoglobin 10.6 L 11.5-16.0 G/DL Hematocrit 34 L 35-52 % Mean Corpuscular Volume 83 80-99 FL Mean Corpuscular Hemoglobin 26 25-34 PG Mean Corpuscular Hemoglobin Concent 32 32-36 G/DL Red Cell Distribution Width 16.2 H 10.0-14.5 % Platelet Count 292 130-400 10^3/uL Mean Platelet Volume 9.4 7.4-10.4 FL Neutrophils (%) (Auto) 56 42-75 % Lymphocytes (%) (Auto) 30 12-44 % Monocytes (%) (Auto) 13 H 0-12 % Eosinophils (%) (Auto) 0 0-10 % Basophils (%) (Auto) 0 0-10 % Neutrophils # (Auto) 3.9 1.8-7.8 X 10^3 Lymphocytes # (Auto) 2.1 1.0-4.0 X 10^3 Monocytes # (Auto) 0.9 0.0-1.0 X 10^3 Eosinophils # (Auto) 0.0 0.0-0.3 10^3/uL Basophils # (Auto) 0.0 0.0-0.1 10^3/uL Sodium Level 136 135-145 MMOL/L Potassium Level 3.8 3.6-5.0 MMOL/L Chloride Level 107 98-107 MMOL/L Carbon Dioxide Level 20 L 21-32 MMOL/L Anion Gap 9 5-14 MMOL/L Blood Urea Nitrogen 8 7-18 MG/DL Creatinine 0.58 L 0.60-1.30 MG/DL Estimat Glomerular Filtration Rate > 60 BUN/Creatinine Ratio 14 Glucose Level 81 70-105 MG/DL Uric Acid 5.0 2.6-7.2 MG/DL Calcium Level 8.6 8.5-10.1 MG/DL Corrected Calcium 9.1 8.5-10.1 MG/DL Total Bilirubin 0.7 0.1-1.0 MG/DL Aspartate Amino Transf (AST/SGOT) 11 5-34 U/L Alanine Aminotransferase (ALT/SGPT) 9 0-55 U/L Alkaline Phosphatase 87 40-136 U/L Lactate Dehydrogenase 134 125-220 U/L Total Protein 6.8 6.4-8.2 GM/DL Albumin 3.4 3.2-4.5 GM/DL Patient's lab work is stable The abdomen is gravid and nontender Extremities show no clubbing or cyanosis Assessment and plan hospital day number 5 and currently 35+ weeks gestation preeclampsia bordering on severe preeclampsia. His blood pressures do elevated with activity she remains essentially at bed rest. pLan is for delivery for severe preeclampsia or at 37 weeks gestation. Patient understands that limiting activity likely will slow the progression to severe preeclampsia could occur at any time. We are alert to the increased risk for progression to eclampsia as well January 30, 2019 Patient has no specific complaints. She denies rupture membranes or bleeding. She does feel baby moving. He has had a mild headache. Vital Signs Date Time Temp Pulse Resp B/P (MAP) Pulse Ox O2 Delivery O2 Flow Rate FiO2 01/30/19 08:30 36.6 92 18 136/77 (96) 96 Room Air 01/30/19 04:10 36.5 78 18 146/85 (105) 96 Room Air 01/30/19 00:14 36.4 88 18 156/88 (110) 96 Room Air 01/29/19 19:50 36.6 87 18 154/95 (114) 97 Room Air 01/29/19 15:48 36.4 90 18 152/83 (106) 98 Room Air 01/29/19 11:47 36.8 90 18 142/76 (98) 97 Room Air 01/29/19 11:47 90 18 142/76 Blood pressures remained elevated in the high range for preeclampsia Abdomen is gravid soft nontender Extremities show no clubbing or cyanosis. There is no Homans sign. DTRs are elevated 3+/4 over 4 Assessment and plan hospital day number 6 at 35-6/7 weeks' gestation with preeclampsia bordering on severe preeclampsia plan is to continue blood pressure and monitoring with delivery For severe preeclampsia or at 37 weeks gestation January 31, 2019 Patient is without complaint. Her headache has resolved. Vital Signs Date Time Temp Pulse Resp B/P (MAP) Pulse Ox O2 Delivery O2 Flow Rate FiO2 01/31/19 05:00 36.3 67 16 127/72 (90) 98 Room Air 01/31/19 01:31 80 18 148/85 01/31/19 00:35 37.3 80 18 148/85 (106) 97 Room Air 01/30/19 21:05 98 Room Air 01/30/19 20:56 36.9 89 20 156/95 (115) 99 Room Air 01/30/19 16:28 36.5 91 18 143/84 (103) 98 Room Air 01/30/19 12:35 36.5 82 18 151/79 (103) 99 Room Air I & O 01/31/19 07:00 Intake Total 1840 ml Output Total 1500 ml Balance 340 ml Blood pressures are persistently in the 150s over 80s and 90s The abdomen is benign. The uterus is nontender. Extremities show no clubbing or cyanosis. There is no Homans sign. Assessment and plan hospital day 7 now at 36 weeks gestation. Patient at bed rest has maintained blood pressures and a subcutaneous severe preeclampsia range -the blood pressures do elevate significantly with - patient understands that limited activity will likely prolong the . Plan is to continue current surveillance and effect delivery at 37 weeks or with progression to severe preeclampsia February 01, 2019 Patient remains without complaint. Vital Signs Date Time Temp Pulse Resp B/P (MAP) Pulse Ox O2 Delivery O2 Flow Rate FiO2 02/01/19 04:00 36.2 75 18 137/72 (93) Room Air 02/01/19 00:00 36.0 83 18 157/80 (105) Room Air 01/31/19 20:43 86 18 143/80 01/31/19 20:43 98 Room Air 01/31/19 20:00 36.9 86 18 143/80 (101) 98 Room Air 01/31/19 17:30 36.8 84 18 131/81 (98) 99 Room Air 01/31/19 17:00 155/87 (109) 01/31/19 13:00 36.8 97 18 119/71 (87) 98 Room Air 01/31/19 08:54 85 18 136/82 01/31/19 08:35 36.8 85 18 136/82 (100) 98 Room Air 01/31/19 08:00 98 Room Air I & O 02/01/19 07:00 Intake Total 3740 ml Output Total 3950 ml Balance -210 ml Blood pressures are elevated but remain stable in the mild preeclampsia range patient is afebrile. The abdomen is gravid soft nontender nondistended Extremities show no clubbing or cyanosis there is no Homans sign Assessment and plan hospital day 8 now 36-1/7 weeks gestation. We will continue our current plan and management February 02, 2019 Patient is without complaint, she had a headache yesterday that resolved with Tylenol. Patient denies rupture membranes or bleeding Laboratory Tests Test 02/02/19 05:50 Range/Units White Blood Count 6.7 4.3-11.0 10^3/uL Red Blood Count 4.26 L 4.35-5.85 10^6/uL Hemoglobin 11.3 L 11.5-16.0 G/DL Hematocrit 35 35-52 % Mean Corpuscular Volume 82 80-99 FL Mean Corpuscular Hemoglobin 27 25-34 PG Mean Corpuscular Hemoglobin Concent 33 32-36 G/DL Red Cell Distribution Width 15.6 H 10.0-14.5 % Platelet Count 257 130-400 10^3/uL Mean Platelet Volume 9.9 7.4-10.4 FL Neutrophils (%) (Auto) 62 42-75 % Lymphocytes (%) (Auto) 30 12-44 % Monocytes (%) (Auto) 8 0-12 % Eosinophils (%) (Auto) 1 0-10 % Basophils (%) (Auto) 0 0-10 % Neutrophils # (Auto) 4.2 1.8-7.8 X 10^3 Lymphocytes # (Auto) 2.0 1.0-4.0 X 10^3 Monocytes # (Auto) 0.5 0.0-1.0 X 10^3 Eosinophils # (Auto) 0.0 0.0-0.3 10^3/uL Basophils # (Auto) 0.0 0.0-0.1 10^3/uL Sodium Level 135 135-145 MMOL/L Potassium Level 3.9 3.6-5.0 MMOL/L Chloride Level 107 98-107 MMOL/L Carbon Dioxide Level 17 L 21-32 MMOL/L Anion Gap 11 5-14 MMOL/L Blood Urea Nitrogen 5 L 7-18 MG/DL Creatinine 0.52 L 0.60-1.30 MG/DL Estimat Glomerular Filtration Rate > 60 BUN/Creatinine Ratio 10 Glucose Level 89 70-105 MG/DL Uric Acid 4.6 2.6-7.2 MG/DL Calcium Level 9.0 8.5-10.1 MG/DL Corrected Calcium 9.6 8.5-10.1 MG/DL Total Bilirubin 0.7 0.1-1.0 MG/DL Aspartate Amino Transf (AST/SGOT) 9 5-34 U/L Alanine Aminotransferase (ALT/SGPT) 6 0-55 U/L Alkaline Phosphatase 101 40-136 U/L Lactate Dehydrogenase 173 125-220 U/L Total Protein 6.8 6.4-8.2 GM/DL Albumin 3.2 3.2-4.5 GM/DL Lab work is stable. Uric acid is somewhat elevated for Vital Signs Date Time Temp Pulse Resp B/P (MAP) Pulse Ox O2 Delivery O2 Flow Rate FiO2 02/02/19 08:00 36.9 88 20 141/91 (108) 98 Room Air 02/02/19 07:00 Room Air 02/02/19 03:27 36.9 78 17 141/69 (93) 98 Room Air 02/01/19 23:48 36.9 85 18 135/74 (94) 96 Room Air 02/01/19 20:27 Room Air 02/01/19 20:26 18 02/01/19 20:00 36.8 88 17 158/87 (110) 96 Room Air 02/01/19 17:34 36.5 91 18 144/92 (109) 98 Room Air 02/01/19 16:25 159/92 (114) 02/01/19 14:50 36.5 90 18 140/79 (99) 98 Room Air 02/01/19 12:12 36.6 78 18 143/78 (99) 98 Room Air 02/01/19 09:16 Room Air I & O 02/02/19 07:00 Intake Total 2530 ml Output Total 3650 ml Balance -1120 ml Blood pressures remain elevated but less than severe preeclampsia criteria Physical exam is unchanged Assessment and plan Now hospital day 9 at 36-2/7 weeks' gestation - stable. Blood pressure is elevated distant with preeclampsia and is episodically in the severe preeclampsia range but remains acceptable. Management plan is to continue as is. February 03, 2019 Patient is without complaint except for a mild headache. She denies rupture membranes or bleeding. She is aware that her blood pressures have progressed to the point where delivery is warranted. Vital Signs Date Time Temp Pulse Resp B/P (MAP) Pulse Ox O2 Delivery O2 Flow Rate FiO2 02/03/19 06:30 94 18 156/87 (110) 02/03/19 06:14 87 18 176/98 (124) 02/03/19 01:56 79 16 152/82 (105) Room Air 02/03/19 01:30 83 16 172/101 (124) Room Air 02/03/19 01:00 18 02/03/19 01:00 83 16 171/95 (120) Room Air 02/02/19 21:15 93 16 151/94 (113) Room Air 02/02/19 21:00 Room Air 02/02/19 20:49 98 Room Air 02/02/19 20:47 36.6 91 16 165/89 (114) Room Air 02/02/19 16:00 36.9 93 16 146/93 (110) 97 Room Air 02/02/19 12:00 36.8 83 16 153/98 (116) 98 Room Air 02/02/19 09:00 98 Room Air 02/02/19 08:00 36.9 88 20 141/91 (108) 98 Room Air I & O 02/03/19 07:00 Intake Total 1140 ml Output Total 900 ml Balance 240 ml Most recent blood pressure still was in the 170 range. Abdomen is benign Extremities show no clubbing or cyanosis is no Homans sign Laboratory Tests Test 02/03/19 06:10 Range/Units White Blood Count 6.5 4.3-11.0 10^3/uL Red Blood Count 4.48 4.35-5.85 10^6/uL Hemoglobin 11.7 11.5-16.0 G/DL Hematocrit 36 35-52 % Mean Corpuscular Volume 81 80-99 FL Mean Corpuscular Hemoglobin 26 25-34 PG Mean Corpuscular Hemoglobin Concent 32 32-36 G/DL Red Cell Distribution Width 16.0 H 10.0-14.5 % Platelet Count 245 130-400 10^3/uL Mean Platelet Volume 9.5 7.4-10.4 FL Neutrophils (%) (Auto) 59 42-75 % Lymphocytes (%) (Auto) 33 12-44 % Monocytes (%) (Auto) 7 0-12 % Eosinophils (%) (Auto) 1 0-10 % Basophils (%) (Auto) 0 0-10 % Neutrophils # (Auto) 3.8 1.8-7.8 X 10^3 Lymphocytes # (Auto) 2.1 1.0-4.0 X 10^3 Monocytes # (Auto) 0.5 0.0-1.0 X 10^3 Eosinophils # (Auto) 0.0 0.0-0.3 10^3/uL Basophils # (Auto) 0.0 0.0-0.1 10^3/uL Sodium Level 136 135-145 MMOL/L Potassium Level 4.1 3.6-5.0 MMOL/L Chloride Level 106 98-107 MMOL/L Carbon Dioxide Level 17 L 21-32 MMOL/L Anion Gap 13 5-14 MMOL/L Blood Urea Nitrogen 6 L 7-18 MG/DL Creatinine 0.55 L 0.60-1.30 MG/DL Estimat Glomerular Filtration Rate > 60 BUN/Creatinine Ratio 11 Glucose Level 92 70-105 MG/DL Calcium Level 9.4 8.5-10.1 MG/DL Corrected Calcium 9.8 8.5-10.1 MG/DL Total Bilirubin 0.8 0.1-1.0 MG/DL Aspartate Amino Transf (AST/SGOT) 10 5-34 U/L Alanine Aminotransferase (ALT/SGPT) 8 0-55 U/L Alkaline Phosphatase 106 40-136 U/L Lactate Dehydrogenase 117 L 125-220 U/L Total Protein 7.1 6.4-8.2 GM/DL Albumin 3.5 3.2-4.5 GM/DL Patient's lab work is stable Assessment and plan 36-2/7 weeks gestation now on hospital day 10 with blood pressures in the 170s over 100 range patient has been started on IV magnesium for seizure prophylaxis and plan is to proceed with repeat . We will continue the magnesium after delivery until her blood pressures began to normalize February 04, 2019 The patient is without complaint. She is ambulating, voiding, tolerating oral intake, and has good pain control Vital Signs Date Time Temp Pulse Resp B/P (MAP) Pulse Ox O2 Delivery O2 Flow Rate FiO2 02/04/19 05:03 36.6 73 18 138/65 (89) 95 Room Air 02/03/19 23:38 36.5 85 18 135/73 (93) 97 Room Air 02/03/19 20:00 39.8 99 18 136/80 (98) 97 Room Air 02/03/19 16:52 37.0 93 18 138/75 (96) 98 Room Air 02/03/19 16:47 92 18 136/70 (92) 98 Room Air 02/03/19 15:47 93 18 141/74 (96) 98 Room Air 02/03/19 14:47 94 18 141/76 (97) 98 Room Air 02/03/19 13:47 99 18 128/66 (86) 99 Room Air 02/03/19 12:47 36.4 114 18 135/63 (87) 100 Room Air 02/03/19 11:47 104 18 127/67 (87) 100 Room Air 02/03/19 10:47 87 18 142/73 (96) 100 Room Air 02/03/19 09:47 36.2 74 18 160/79 (106) 99 Room Air 02/03/19 09:40 Room Air 02/03/19 09:40 36.3 18 143/89 (107) 98 Room Air 02/03/19 09:30 18 141/96 (111) 98 Room Air 02/03/19 09:30 Room Air 02/03/19 09:20 18 155/94 (114) 97 Room Air 02/03/19 09:15 Room Air 02/03/19 09:10 18 148/89 (108) 100 Room Air 02/03/19 09:00 Room Air 02/03/19 09:00 18 134/79 (97) 99 Room Air 02/03/19 08:50 18 132/82 (99) 99 Room Air 02/03/19 08:47 Room Air 02/03/19 08:47 36.5 20 135/85 (102) 98 Room Air I & O 02/04/19 07:00 Intake Total 7210 ml Output Total 4825 ml Balance 2385 ml Vital signs are stable. She is afebrile. The abdomen is benign. Incision is clean dry and intact. Extremities show no clubbing or cyanosis. There is no Homans sign Assessment and plan hospital day 11, post operative day number 1, status post repeat delivery due to severe preeclampsia at 36 weeks gestation Plan is for routine convalescence care with close attention to blood pressures February 05, 2019 This patient is without complaint relating, voiding, tolerating oral intake has good pain control and is requesting discharge home Vital Signs Date Time Temp Pulse Resp B/P (MAP) Pulse Ox O2 Delivery O2 Flow Rate FiO2 02/05/19 05:42 36.9 74 18 149/83 (105) 97 Room Air 02/04/19 23:57 36.8 98 18 145/79 (101) 98 Room Air 02/04/19 19:43 37.0 97 18 144/78 (100) 98 Room Air 02/04/19 17:00 36.6 88 18 133/66 (88) 98 Room Air 02/04/19 11:50 37.1 86 18 113/59 (77) 99 Room Air I & O 02/05/19 07:00 Intake Total 3220 ml Output Total 3900 ml Balance -680 ml Vital signs are stable. Patient is afebrile The abdomen is benign Extremities show no clubbing or cyanosis. Is no Homans sign Assessment and plan hospital day 12/postoperative day 2 status post repeat C- section for severe preeclampsia - this patient is doing well - blood pressures are controlled plan is for discharge home with follow-up in clinic Final Diagnosis 36 weeks repeat EDINSON VASQUEZ MD Feb 05, 2019 10:16
--- NOTE | 2019-02-05 10:26 | Discharge Summary ---
Discharge Summary 36 week repeat This patient is a 33-year-old who was admitted on January 25, 2019 at 35 weeks gestation severe preeclampsia. From the day of admission through February 03, 2019 The patient remained relatively stable overt preeclampsia during on severe preeclampsia. He had episodic blood pressures over 160 systolic and approaching 110 diastolic. 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 The delivery was uncomplicated and the patient recovered uneventfully On February 04, 2019 the patient was ambulating, voiding, tolerating oral intake well, and blood pressures were normalizing. Patient was stable through the day On February 05, 2019 she again is convalescing well and plan is for discharge home. Principal diagnoses this hospitalization - delivery at 36 weeks gestation Secondary diagnoses are - severe preeclampsia, previous delivery 3, 36+ weeks gestation Operations and procedures include - monitoring, IV magnesium, spinal analgesia, the delivery Patient was given appropriate discharge instructions verbally and in writing and a copy of those were placed in the chart. Discharge medications are Percocet, Motrin, Colace, Procardia XL, and patient is to continue her own PNV Clinical Quality Measures DVT/VTE Risk/Contraindication: Risk Factor Score Per Nursin RFS Level Per Nursing on Admit: 3=High EDINSON VASQUEZ MD Feb 05, 2019 10:26
[2019-02-05] MEDS: oxyCODONE/APAP 10/325MG (PERCOCET 10) TABLET PO PRN (12:13)
[2019-02-05 12:16] VITALS: BP 128/80
== END 2019-02-05 18:00 | disposition home or self-care (01) | DRG 788 ==
LOC: LDRP 14:29 → WSo 14:29 → OBSVTOIN 15:00 → LDRP 15:00
PROVIDERS: ADMIT Obstetrics & Gynecology; ATTEND Obstetrics & Gynecology
PROC: 10D00Z1 Extraction of Products of Conception, Low, Open Approach (ICD-10-PCS; principal; 2019-02-04)
DX: O11.4 Pre-existing hypertension with pre-eclampsia, complicating childbirth (principal); O24.425 Gestational diabetes mellitus in childbirth, controlled by oral hypoglycemic drugs; O34.211 Maternal care for low transverse scar from previous cesarean delivery; O10.92 Unspecified pre-existing hypertension complicating childbirth; Z37.0 Single live birth; Z3A.35 35 weeks gestation of pregnancy; Z23 Encounter for immunization
CPT/HCPCS: 36415; 76805; 76819; 80053; 83615; 84550; 85025; 86850; 86900; 86901

== ENCOUNTER → 2019-01-25 | Outpatient (CLI) | payer OTHER | LOC: LABNPT 09:00 | PROVIDERS: ATTEND Obstetrics & Gynecology | DX: O28.8 Other abnormal findings on antenatal screening of mother (principal) | CPT/HCPCS: 82570; 84156 ==